=== PATIENT | female | born 1955 | race Caucasian/White ===

== ENCOUNTER 2016-12-19 11:08 | Emergency (ER) | payer OTHER ==
[2016-12-19 11:27] VITALS: BP 146/86; PULSE 87; TEMP 98.5; BMI 43.0
--- NOTE | 2016-12-19 12:32 | PDOC ---
History of Present Illness - General Chief Complaint: Injury Stated Complaint: FALL, PAIN Time Seen by Provider: 12/19/16 11:51 History Source: Patient Exam Limitations: No Limitations - History of Present Illness Initial Comments: 12/19/16 13:39 CHIEF COMPLAINT: Accidental fall on , 12/17/2016 HISTORY OF PRESENT ILLNESS: Patient is a 61-year-old female history of hypertension, high cholesterol, hypothyroid patient reports she fell out of the small bus, transportation that she takes fell onto her right side denies hitting her head , states that she braced herself and only hit right elbow. States that driver's license reviewing officer got out and told her to get up. Has not attempted to take any medication for pain states that she has generalized musculoskeletal pain, pain with range of motion to neck and intermittent headache. 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 No facial edema, no bruising. NO active bleeding. Nares intact. RESPIRATORY: No cough, wheezing, or hemoptysis. CARDIAC: Denies chest pain, no shortness of breathe. MUSCULOSKELETAL: No spinal point tenderness, lower c-spine tenderness, Good ROM to all four extremities. NO CVA tenderness. bilateral lateral neck pain. GI/: Denies abdominal pain, no nausea or vomiting, no bloody stool, no Hematuria. SKIN : No erythema or bruising noted. Healing abrasion to the right elbow. NEUROLOGIC: No loss of consciousness, no numbness or tingling. PHYSICAL EXAM: GENERAL: Awake and alert and oriented x3. EYES: The pupils are equal, round, and reactive to light, with clear, conjunctiva. Good extraocular movement. No nystagmus NOSE: No nasal trauma . Midface stable MOUTH: Teeth intact. EARS: The ear canals and tympanic membranes are normal without trauma. No drainage. NECK: generalized cervical C-spine tenderness, no pain with chin to chest. CHEST: The lungs are clear without crackles, or wheezes. No subcutaneous emphysema. No crepitus. HEART: Heart is regular rhythm, with normal S1 and S2, no murmurs. ABDOMEN: The abdomen is soft and nontender with normal bowel sounds. There is no guarding or rebound. MUSCULOSKELETAL: No spinal point tenderness. No bruising or erythema. Pelvis stable. Pain on palpation to right lateral lower ribs. EXTREMITIES: Extremities are normal. No visible traumatic injury. NEUROLOGICAL:Mental status: The patient is oriented x3. No Generalized headache , Romberg - Cranial nerves: Cranial nerves II through XII are intact Motor: The upper extremities are 5 over 5 in all muscle groups. The lower extremities are 5 over 5 in all muscle groups. Sensation: Sensation is intact to light touch throughout. Cerebellar: Jkqsei-cknetz-jeuv is normal in both upper extremities. Heel-knee- blake is normal in both lower extremities. Reflexes: 2+ and symmetric in the upper and lower extremities. Gait: Normal. Heel and toe walking are normal. Tandem gait is normal. SKIN: Without edema, erythema or bruising. Healing abrasion to the right elbow. 12/19/16 16:44 Past History - Past Medical History Allergies/Adverse Reactions: Allergies Allergy/AdvReac Type Severity Reaction Status Date / Time No Known Allergies Allergy Verified 12/19/16 11:21 Home Medications: Ambulatory Orders Ibuprofen [Motrin -] 600 mg PO QID #28 tablet 12/19/16 Diabetes: Yes HTN: Yes - Psycho/Social/Smoking Cessation Hx Suicidal Ideation: No Smoking History: Never smoked *Physical Exam - Vital Signs Last Vital Signs Temp Pulse Resp BP Pulse Ox 98.5 F 87 18 146/86 94 L 12/19/16 11:21 12/19/16 11:21 12/19/16 11:21 12/19/16 11:21 12/19/16 11:21 Medical Decision Making - Medical Decision Making 12/19/16 13:48 A/P: Patient with generalized musculoskeletal pain status post fall however does have minor spinal point tenderness, low suspicion for bony injury however patient requesting x-rays will perform x-rays of right wrist where it's tender on palpation and C-spine, Toradol 60 mg IM explained to patient that it may be musculoskeletal in nature and will DC on anti-inflammatories of x-rays are negative. 12/19/16 13:49 12/19/16 14:28 X-rays ribs negative for acute fracture, C-spine with degenerative changes straightening otherwise unremarkable if pain persists recommend further follow- up will DC patient home on Motrin as needed, follow-up with orthopedics. I discussed the physical exam findings, ancillary test results and final diagnoses with the patient. I answered all of the patient's questions. The patient was satisfied with the care received and felt comfortable with the discharge plan and treatment plan. The patient will call to arrange follow-up and will return to the Emergency Department with any new, persistent or worsening symptoms. 12/19/16 16:44 *DC/Admit/Observation/Transfer Diagnosis at time of Disposition: Musculoskeletal pain Accidental fall Qualifiers: Encounter type: initial encounter Qualified Code(s): W19.XXXA - Unspecified fall, initial encounter - Discharge Dispostion Disposition: HOME Condition at time of disposition: Stable Admit: No - Prescriptions Prescriptions: Ibuprofen [Motrin -] 600 mg PO QID #28 tablet - Referrals Referrals: David Peguero [Primary Care Provider] - - Patient Instructions Additional Instructions: 1. Please return to the emergency department with any numbness, tingling, weakness, numbness or tingling to groin or legs, or loss of bowel or bladder function. 2. Use pain medication as ordered. 3. Please is to followup in the office orthopedics for evaluation within a week if no improvement. 4. Ice or heat 5. Refrain from lifting anything above 10 pounds, until pain resolved.
[2016-12-19] MEDS ORDERED: KETOROLAC TROMETHAMINE 60 MG/2 ML VIAL IM ONE (13:02)
[2016-12-19] MEDS ORDERED: KETOROLAC TROMETHAMINE 60 MG/2 ML VIAL ONE (13:03)
== END 2016-12-19 14:37 | disposition home or self-care (01) ==
LOC: JERFT 11:08
PROC: 3E0233Z Introduction of Anti-inflammatory into Muscle, Percutaneous Approach (ICD-10-PCS; principal; 2016-12-19)
DX: M79.1 Myalgia (principal); V79.88XA Bus occupant (driver) (passenger) injured in other specified transport accidents, initial encounter; Y93.89 Activity, other specified; Y92.410 Unspecified street and highway as the place of occurrence of the external cause; I10 Essential (primary) hypertension; E11.9 Type 2 diabetes mellitus without complications; E03.9 Hypothyroidism, unspecified
CPT/HCPCS: 71101-TC-RT; 72050-TC; 99281-25

== ENCOUNTER 2017-06-15 04:41 | Day surgery (SDC) | payer OTHER ==
[2017-06-15 05:00] VITALS: BMI 40.2
--- NOTE | 2017-06-15 05:16 | PDOC ---
History of Present Illness - General Chief Complaint: Pain Stated Complaint: ABD PAIN Time Seen by Provider: 06/15/17 05:16 - History of Present Illness Initial Comments: 06/15/17 07:29 Patient is a 61 year old female with a significant past medical history of Diabetes, Depression hypertension, high cholesterol, hypothyroid who presents to the ED with complaints of abdominal pain that began 2 days ago. Patient reports abdominal pain began suddenly while at home. Patient state it was and intermittent cramping pain that was intense enough to wake her from sleep at 3 am prompting her to activate EMS. Denies chest pain, SOB. Denies nausea, vomiting. Denies fever, chills. Denies contact with sick individuals, out of state travel. Denies constipation, diarrhea, dysuria. Denies any other symptoms. Allergies: None Social history: No smoking. No alcohol. No illicit drugs. Surgical history: None PMD: None Past History - Past Medical History Allergies/Adverse Reactions: Allergies Allergy/AdvReac Type Severity Reaction Status Date / Time No Known Allergies Allergy Verified 06/15/17 04:52 Home Medications: Ambulatory Orders Liraglutide [Victoza -] 0.8 mg SQ DAILY@0700 06/15/17 Quetiapine Fumarate [Seroquel -] 200 mg PO HS 06/15/17 Venlafaxine HCl [Effexor -] 75 mg PO DAILY 06/15/17 Diabetes: Yes HTN: Yes - Suicide/Smoking/Psychosocial Hx Smoking History: Never smoked Have you smoked in the past 12 months: No Information on smoking cessation initiated: No Hx Alcohol Use: No Drug/Substance Use Hx: No Review of Systems - Review of Systems Comments:: 06/15/17 07:29 GENERAL/CONSTITUTIONAL: No fever or chills. No weakness. HEAD, EYES, EARS, NOSE AND THROAT: No change in vision. No ear pain or discharge. No sore throat. GASTROINTESTINAL: No nausea, vomiting, diarrhea or constipation. GENITOURINARY: No dysuria, frequency, or change in urination. CARDIOVASCULAR: No chest pain or shortness of breath. RESPIRATORY: No cough, wheezing, or hemoptysis. MUSCULOSKELETAL: +Left lower quadrant pain. No joint or muscle swelling. No neck or back pain. SKIN: No rash NEUROLOGIC: No headache, vertigo, loss of consciousness, or change in strength/ sensation. ENDOCRINE: No increased thirst. No abnormal weight change. HEMATOLOGIC/LYMPHATIC: No anemia, easy bleeding, or history of blood clots. ALLERGIC/IMMUNOLOGIC: No hives or skin allergy. *Physical Exam - Vital Signs Last Vital Signs Temp Pulse Resp BP Pulse Ox 98.1 F 71 14 133/53 97 06/15/17 04:53 06/15/17 04:53 06/15/17 04:53 06/15/17 04:53 06/15/17 04:53 - Physical Exam Comments: 06/15/17 07:30 GENERAL: Awake, alert, and fully oriented, in no acute distress HEAD: No signs of trauma EYES: PERRLA, EOMI, sclera anicteric, conjunctiva clear ENT: Auricles normal inspection, hearing grossly normal, nares patent, oropharynx clear without exudates. Moist mucosa NECK: Normal ROM, supple, no lymphadenopathy, JVD, or masses LUNGS: Breath sounds equal, clear to auscultation bilaterally. No wheezes, and no crackles HEART: Regular rate and rhythm, normal S1 and S2, no murmurs, rubs or gallops ABDOMEN: +Obese. +Left lower quadrant tenderness. Soft, nontender, normoactive bowel sounds. No guarding, no rebound. No masses EXTREMITIES: Normal range of motion, no edema. No clubbing or cyanosis. No cords , erythema, or tenderness NEUROLOGICAL: Normal speech, cranial nerves intact, negative pronator drift, 5/ 5 strength in all 4 extremities, normal sensation to light touch in all 4 extremities, normal cerebellar exam, normal gait, normal reflexes and tone SKIN: Warm, Dry, normal turgor, no rashes or lesions noted. Heart Score/ECG Review #1 06/15/17 07:23 Twelve-lead EKG was performed and reviewed by me. Normal sinus rhythm rate 74. Normal axis and intervals. No ST elevations. T wave inversions in avL, V2 through V4 with T-wave flattening in I, V5 and V6. Unchanged compared to EKG from 05/17/2011. ED Treatment Course - LABORATORY CBC & Chemistry Diagram: 06/15/17 05:20 06/15/17 05:20 Medical Decision Making - Medical Decision Making 06/15/17 07:30 61-year-old female with multiple medical problems presents with left-sided abdominal pain. Vitals unremarkable. Exam with mild left lower quadrant tenderness to palpation area differential includes but not limited to diverticulitis versus colitis versus gastritis. Plan: -pain control -CT -labs -UA -reassess
[2017-06-15] MEDS ORDERED: morphine CARPU-JECT 4 MG/1 ML DISP.SYRIN IVPUSH ONE (05:42)
[2017-06-15 06:02] LABS: BASOPHIL 0.9 % (0-2.0); EOSINOPHIL 2.4 % (0-4.5); MCH 30.4 pg (25.7-33.7); MEAN CELL VOLUME 89.3 fl (80-96); MEAN PLT VOLUME 9.2 fl (7.5-11.1); NEUTROPHILS 49.5 % (42.8-82.8); PLATELET COUNT 227 K/MM3 (134-434); RDW 13.9 % (11.6-15.6)
[2017-06-15] MEDS ORDERED: ONDANSETRON 4 MG/2 ML VIAL IVPUSH ONE (06:10)
[2017-06-15] MEDS ORDERED: morphine SULFATE 4 MG/ML VIAL ONE (06:13)
[2017-06-15] MEDS ORDERED: ONDANSETRON 4 MG/2 ML VIAL ONE (06:13)
[2017-06-15 06:24] LABS: ALBUMIN 3.3 g/dl (3.4-5.0); ANION GAP 12 (8-16); BILIRUBIN,TOTAL 0.4 mg/dL (0.2-1.0); CALCIUM 8.7 mg/dL (8.5-10.1); CO2 28 mmol/L (21-32); CREATININE 0.6 mg/dL (0.55-1.02); GLUCOSE,RANDOM 152 mg/dL (74-106); SGPT/ALT 34 U/L (12-78); TOT PROT 6.5 g/dl (6.4-8.2)
[2017-06-15 06:27] LABS: ALK PHOS 183 U/L (45-117); TROPONIN I < 0.02 ng/ml (0.00-0.05)
[2017-06-15 06:30] LABS: CPK 130 IU/L (26-192); SGOT/AST 31 U/L (15-37)
[2017-06-15 06:41] LABS: URINE APPEARANCE SLCLOUDY; URINE BILIRUBIN NEGATIVE (NEGATIVE); URINE BLOOD 2+ (NEGATIVE); URINE COLOR LTYELLOW; URINE GLUCOSE (UA) NEGATIVE (NEGATIVE); URINE KETONE NEGATIVE (NEGATIVE); URINE NITRITE NEGATIVE (NEGATIVE); URINE PROTEIN NEGATIVE (NEGATIVE); URINE UROBILINOGEN NEGATIVE mg/dL (0.2-1.0)
[2017-06-15] MEDS ORDERED: SODIUM CHLORIDE 0.9% 1000 ML INFUS.BAG IV ONE ×2 (07:33→09:47)
[2017-06-15 08:09] LABS: URINE BACTERIA RARE /hpf (NONE SEEN); URINE MUCUS RARE; URINE RBC 3 /hpf (0-3); URINE WBC 5 /hpf (3-5)
[2017-06-15] MEDS ORDERED: PIPERACILLIN/TAZOB 3.375 GM/50 ML PRE-DOCKED IVPB ONE (09:30)
[2017-06-15] MEDS ORDERED: PIPERACIL/TAZOB 3.375 GM 3.375 GM/50 ML PREMIX IVPB ONE (09:30)
--- NOTE | 2017-06-15 09:45 | PDOC ---
*Physical Exam - Vital Signs Last Vital Signs Temp Pulse Resp BP Pulse Ox 98.1 F 71 14 133/53 97 06/15/17 04:53 06/15/17 04:53 06/15/17 04:53 06/15/17 04:53 06/15/17 04:53 ED Treatment Course - LABORATORY CBC & Chemistry Diagram: 06/15/17 05:20 06/15/17 05:20 - ADDITIONAL ORDERS Additional order review: Laboratory Results 06/15/17 06/15/17 06/15/17 06:30 06:30 05:20 Sodium 141 Potassium 4.3 Chloride 101 Carbon Dioxide 28 Anion Gap 12 BUN 14 Creatinine 0.6 Creat Clearance w eGFR > 60 Random Glucose 152 H Lactic Acid 3.3 H* Calcium 8.7 Total Bilirubin 0.4 AST 31 ALT 34 Alkaline Phosphatase 183 H Creatine Kinase 130 Troponin I < 0.02 Total Protein 6.5 Albumin 3.3 L Lipase 184 Urine Color Ltyellow Urine Appearance Slcloudy Urine pH 6.0 Ur Specific [place] 1.014 Urine Protein Negative Urine Glucose (UA) Negative Urine Ketones Negative Urine Blood 2+ H Urine Nitrite Negative Urine Bilirubin Negative Urine Urobilinogen Negative Urine WBC (Auto) 5 Urine RBC (Auto) 3 Ur Epithelial Cells Few Urine Bacteria Rare Urine Mucus Rare 06/15/17 05:20 RBC 4.20 MCV 89.3 MCHC 34.0 RDW 13.9 MPV 9.2 Neutrophils % 49.5 Lymphocytes % 40.5 H Monocytes % 6.7 Eosinophils % 2.4 Basophils % 0.9 - Medications Given in the ED: ED Medications Discontinued Medications Generic Name Dose Route Start Last Admin Trade Name Cem PRN Reason Stop Dose Admin Morphine Sulfate 4 mg 06/15/17 05:42 06/15/17 06:36 Morphine Injection - IVPUSH 06/15/17 05:43 4 mg ONCE ONE Administration Ondansetron HCl 4 mg 06/15/17 06:10 06/15/17 06:36 Zofran Injection IVPUSH 06/15/17 06:11 4 mg ONCE ONE Administration Sodium Chloride 2,000 ml 06/15/17 07:33 06/15/17 07:38 Normal Saline - IV 06/15/17 07:34 2,000 ml ONCE ONE Administration Medical Decision Making - Medical Decision Making 06/15/17 13:[address] Surgery aware. Given elevated lactate diabetes patient covered with Zosyn. IV fluids ordered. Patient made nothing by mouth. We will admit to surgery for definitive management. *DC/Admit/Observation/Transfer Diagnosis at time of Disposition: Appendicitis Qualifiers: Appendicitis type: acute appendicitis Acute appendicitis type: other Qualified Code(s): K35.89 - Other acute appendicitis - Discharge Dispostion Admit: Yes - Referrals - Patient Instructions - Post Discharge Activity
[2017-06-15] MEDS ORDERED: PIPERACILLIN/TAZOB 3.375 GM 3.375 GM/50 ML BAG IVPB ONE (09:47)
[2017-06-15 10:36] LABS: INR 1.05 (0.82-1.09); PROTHROMBIN TIME (PATIENT) 11.9 SEC (9.98-11.88)
[2017-06-15 10:39] LABS: ACTIVATED PTT 33.3 SECONDS (26.9-34.4)
--- NOTE | 2017-06-15 11:55 | HP ---
Admitting History and Physical - Admission Chief Complaint: LUQ pain History of Present Illness: 61yo morbidly obese F with DM2, HLD, hypothyroidism, depression, no surgical history except upper and lower endoscopies, presented with LLQ pain beginning 2 days ago, associated with anorexia, nausea but no vomiting, no f/c, no d/c, last BM yesterday; the pain has gotten progressively worse, and is now more in the LUQ. Her last po was yesterday afternoon, and she took her home meds with sips of water last night. In the ER, she is afebrile, wbc 9, LFTs normal, and CT showed acute appendicitis, with 8-9mm appendix and periappendiceal inflammatory changes, no abscess or perforation. It also noted a small hiatal hernia, but no obvious left-sided abnormal findings. Contrast reaches the colon. She has no nausea at the time of exam, and indicates the worst pain is LUQ, though she does have some RLQ tenderness. She wants to get her appendix out. History Source: Patient Limitations to Obtaining History: Language Barrier (Pashto, phone paver installer # [id number] and Yoel Pollock, at bedside) - Past Medical History Cardiovascular: Yes: Hyperlipdemia. No: HTN Reproductive: Yes: Postmenopausal ...: No Psych: Yes: Depression Musculoskeletal: Yes: Osteoarthritis Endocrine: Yes: Hypothyroidism - Past Surgical History Past Surgical History: Yes: Colonoscopy, Upper Endoscopy - Smoking History Smoking history: Never smoked Have you smoked in the past 12 months: No - Alcohol/Substance Use Hx Alcohol Use: Yes (rarely) History of Substance Use: reports: None - Social History ADL: Independent Home Medications - Allergies Allergies/Adverse Reactions: Allergies Allergy/AdvReac Type Severity Reaction Status Date / Time No Known Allergies Allergy Verified 06/15/17 04:52 - Home Medications Home Medications: Ambulatory Orders Liraglutide [Victoza -] 0.8 mg SQ DAILY@0700 06/15/17 Quetiapine Fumarate [Seroquel -] 200 mg PO HS 06/15/17 Venlafaxine HCl [Effexor -] 75 mg PO DAILY 06/15/17 Home Medications (free text): synthroid, cholesterol med Family Disease History - Family Disease History Family Disease History: CA: Father (prostate) Review of Systems - Review of Systems Constitutional: reports: Loss of Appetite. denies: Chills, Fever Eyes: reports: Other (uses reading glasses). denies: Recent Change in Vision HENT: denies: Difficult Swallowing, Hearing Loss, Nasal Congestion, Throat Pain Neck: denies: Swollen Glands, Tenderness Cardiovascular: denies: Chest Pain, Palpitations Respiratory: denies: Cough, SOB Gastrointestinal: reports: Abdominal Pain (with hpi), Nausea. denies: Constipation, Diarrhea, Vomiting Genitourinary: reports: Other (vaginal itching 2wks ago, resolved with cream from Dr). denies: Burning, Dysuria Musculoskeletal: reports: Joint Pain (at times). denies: Back Pain Integumentary: denies: Change in Color, Rash Neurological: denies: Dizziness, Headache Psychiatric: reports: Anxiety, Depression Physical Examination Vital Signs: Vital Signs Temperature 98.1 F 06/15/17 04:53 Pulse Rate 71 06/15/17 04:53 Respiratory Rate 14 06/15/17 04:53 Blood Pressure 133/53 06/15/17 04:53 O2 Sat by Pulse Oximetry (%) 97 06/15/17 04:53 Constitutional: Yes: No Distress, Calm, Obese Eyes: Yes: Conjunctiva Clear, EOM Intact HENT: Yes: Atraumatic, Normocephalic Neck: Yes: Supple, Trachea Midline Cardiovascular: Yes: Regular Rate and Rhythm. No: Murmur Respiratory: Yes: Regular, CTA Bilaterally Gastrointestinal: Yes: Soft, Abdomen, Obese, Hyperactive Bowel Sounds, Tenderness (RLQ and LUQ without rebound or guarding) ...Rectal Exam: Yes: Deferred Renal/: No: CVA Tenderness - Left, CVA Tenderness - Right Musculoskeletal: No: Back Pain (no direct tenderness), Joint Swelling Extremities: No: Cool, Cyanosis Edema: Yes Edema: LLE: Trace, RLE: Trace Peripheral Pulses WNL: Yes Integumentary: No: Jaundice, Rash Neurological: Yes: Alert, Oriented. No: Facial Droop Psychiatric: Yes: Alert, Oriented Labs: CBC, BMP 06/15/17 05:20 06/15/17 05:20 CMP Sodium 141 mmol/L (136-145) 06/15/17 05:20 Potassium 4.3 mmol/L (3.5-5.1) 06/15/17 05:20 Chloride 101 mmol/L (98-107) 06/15/17 05:20 Carbon Dioxide 28 mmol/L (21-32) 06/15/17 05:20 Anion Gap 12 (8-16) 06/15/17 05:20 BUN 14 mg/dL (7-18) 06/15/17 05:20 Creatinine 0.6 mg/dL (0.55-1.02) 06/15/17 05:20 Creat Clearance w eGFR > 60 (>60) 06/15/17 05:20 Random Glucose 152 mg/dL (74-106) H 06/15/17 05:20 Lactic Acid 3.3 mmol/L (0.4-2.0) H* 06/15/17 06:30 Calcium 8.7 mg/dL (8.5-10.1) 06/15/17 05:20 Total Bilirubin 0.4 mg/dL (0.2-1.0) 06/15/17 05:20 AST 31 U/L (15-37) 06/15/17 05:20 ALT 34 U/L (12-78) 06/15/17 05:20 Alkaline Phosphatase 183 U/L (45-117) H 06/15/17 05:20 Creatine Kinase 130 IU/L (26-192) 06/15/17 05:20 Troponin I < 0.02 ng/ml (0.00-0.05) 06/15/17 05:20 Total Protein 6.5 g/dl (6.4-8.2) 06/15/17 05:20 Albumin 3.3 g/dl (3.4-5.0) L 06/15/17 05:20 Lipase 184 U/L (73-393) 06/15/17 05:20 Imaging - Results Cat Scan: Report Reviewed (acute appendicitis no abscess or perforation, small hiatal hernia), Image Reviewed EKG: Report Reviewed, Image Reviewed Problem List - Problems (1) Acute appendicitis without mention of peritonitis Assessment/Plan: admit 23H/satellite NPO/IVF antibiotics started in ER DVT prophylaxis pain meds prn continue home meds Discussed with patient risks, benefits and alternatives of laparoscopic possible open appendectomy, including but not limited to bleeding, infection, injury to adjacent structures, intestinal leak or injury, intraabdominal abscess , need for further procedures; alternatives include antibiotics, delayed or no surgery - risks of this include failure of nonoperative therapy, perforation, sepsis, recurrence. Patient desires to proceed with operation - will take to OR for above. Informed consent signed for same. Code(s): K35.80 - UNSPECIFIED ACUTE APPENDICITIS Qualifiers: Acute appendicitis type: other Qualified Code(s): K35.89 - Other acute appendicitis (2) Hypothyroidism Code(s): E03.9 - HYPOTHYROIDISM, UNSPECIFIED Qualifiers: Hypothyroidism type: acquired Qualified Code(s): E03.9 - Hypothyroidism, unspecified (3) Diabetes mellitus type 2 in obese Code(s): E11.69 - TYPE 2 DIABETES MELLITUS WITH OTHER SPECIFIED COMPLICATION; E66.9 - OBESITY, UNSPECIFIED (4) Morbid obesity due to excess calories Code(s): E66.01 - MORBID (SEVERE) OBESITY DUE TO EXCESS CALORIES (5) Depression Code(s): F32.9 - MAJOR DEPRESSIVE DISORDER, SINGLE EPISODE, UNSPECIFIED Qualifiers: Depression Type: major depressive disorder Major depression recurrence: recurrent Active/Remission status: in remission of unspecified degree Qualified Code(s): F33.40 - Major depressive disorder, recurrent, in remission, unspecified (6) Hyperlipidemia Code(s): E78.5 - HYPERLIPIDEMIA, UNSPECIFIED Qualifiers: Hyperlipidemia type: unspecified Qualified Code(s): E78.5 - Hyperlipidemia , unspecified
[2017-06-15 12:44] LABS: URINE LEUK ESTERASE 1+ (NEGATIVE)
[2017-06-15] MEDS ORDERED: morphine SULFATE 4 MG/ML VIAL IVPUSH PRN ×2 (12:49→19:32)
[2017-06-15] MEDS ORDERED: ONDANSETRON 4 MG/2 ML VIAL IVPUSH PRN ×2 (12:52→19:43)
[2017-06-15] MEDS ORDERED: SODIUM CHLORIDE 1,000 ML IV SCH (13:00)
[2017-06-15] MEDS ORDERED: fentaNYL CITRATE 250 MCG/5 ML VIAL ONE (17:11)
[2017-06-15] MEDS ORDERED: PROPOFOL 20 ML ONE ×2 (17:12→19:08)
[2017-06-15] MEDS ORDERED: SUCCINYLCHOLINE CHLORIDE 200 MG/10 ML VIAL ONE (17:12)
[2017-06-15] MEDS ORDERED: ROCURONIUM BROMIDE 50 MG/5 ML VIAL ONE (17:17)
[2017-06-15] MEDS ORDERED: PIPERACILLIN/TAZOB 4.5 GM 4.5 GM in DEXTROSE 5%-WATER - 100 ML IVPB ONE (17:45)
[2017-06-15] MEDS ORDERED: PIPERACILLIN/TAZOB 4.5 GM/100 ML PRE-DOCKED IVPB ONE (18:00)
[2017-06-15] MEDS ORDERED: ePHEDrine SULFATE 50 MG/1 ML AMPULE ONE (18:06)
[2017-06-15] MEDS ORDERED: BUPIVACAINE HCL/PF 0.5% (5MG/ML) 10 ML VIAL ONE (18:09)
[2017-06-15] MEDS ORDERED: DEXAMETHASONE SOD PHOSPHATE 4 MG/1 ML VIAL ONE (18:21)
[2017-06-15] MEDS ORDERED: BUPIVACAINE HCL/PF 0.5% (5MG/ML) 10 ML VIAL IJ ONE ×2 (18:56)
[2017-06-15] MEDS ORDERED: GLYCOPYRROLATE 0.2 MG/1 ML VIAL ONE (19:02)
[2017-06-15] MEDS ORDERED: NEOSTIGMINE METHYLSULFATE 0.5 MG/ML - 10 ML MDV ONE (19:03)
--- NOTE | 2017-06-15 19:25 | OP ---
Operative Note - Note: Operative Date: 06/15/17 Pre-Operative Diagnosis: acute appendicitis Operation: laparoscopic appendectomy Findings: long, inflamed retrocecal appendix with little fluid in R colic gutter Post-Operative Diagnosis: Same as Pre-op Surgeon: Manolo Meza Anesthesiologist/PHYSICIAN ASSISTANT CERTIFIED: Zachery Rivas Anesthesia: General, Local (15ml 0.5% marcaine) Specimens Removed: appendix to pathology Estimated Blood Loss (mls): 5 Drains & Tubes with Location: Sigala removed at end of case Drains, Volume Out (mls): 250 (UOP) Fluid Volume Replaced (mls): 1,000 (crystalloid) Operative Report Dictated: Yes
[2017-06-15] MEDS ORDERED: ACETAMINOPHEN 325 MG TABLET (FP) PO PRN (19:27)
[2017-06-15] MEDS ORDERED: IBUPROFEN 600 MG TABLET (FP) PO PRN (19:27)
[2017-06-15] MEDS ORDERED: oxyCODONE HCL 5 MG TABLET PO PRN (19:27)
[2017-06-15] MEDS ORDERED: ACETAMINOPHEN 1000 MG/100 ML VIAL (NON FORMULARY) IVPB ONE (19:44)
[2017-06-15] MEDS ORDERED: LACTATED RINGERS SOLUTION 1,000 ML IV SCH (19:45)
[2017-06-15] MEDS ORDERED: ENOXAPARIN NA (PORCINE) 40 MG/0.4 ML DISP.SYRIN SQ SCH (22:00)
[2017-06-15] MEDS ORDERED: QUEtiapine FUMARATE 200 MG TABLET PO SCH (22:00)
[2017-06-16] MEDS ORDERED: ACETAMINOPHEN 325 MG TABLET (FP) PO PRN (02:00)
[2017-06-16] MEDS ORDERED: PIPERACILLIN/TAZOB 4.5 GM 4.5 GM/100 ML BAG IVPB ONE (02:00)
[2017-06-16] MEDS ORDERED: PIPERACILLIN/TAZOB 4.5 GM 4.5 GM in DEXTROSE 5%-WATER - 100 ML IVPB ONE (02:00)
[2017-06-16] MEDS: INSULIN SLIDING SCALE (NOVOLOG) 1 VIAL SQ SCH ×2 (02:49→06:49)
[2017-06-16] MEDS ORDERED: LEVOTHYROXINE NA 75 MCG TABLET (FP) PO SCH (07:00)
[2017-06-16] MEDS ORDERED: IBUPROFEN 600 MG TABLET (FP) PO PRN (07:41)
[2017-06-16] MEDS ORDERED: oxyCODONE HCL 5 MG TABLET PO PRN (07:41)
[2017-06-16] MEDS ORDERED: morphine SULFATE 4 MG/ML VIAL IVPUSH PRN (07:41)
[2017-06-16] MEDS ORDERED: SODIUM CHLORIDE 1,000 ML IV SCH (07:41)
--- NOTE | 2017-06-16 07:46 | EKG ---
Test Reason : Blood Pressure : / mmHG Vent. Rate : 074 BPM Atrial Rate : 074 BPM P-R Int : 144 ms QRS Dur : 086 ms QT Int : 416 ms P-R-T Axes : 043 059 068 degrees QTc Int : 461 ms NORMAL SINUS RHYTHM NONSPECIFIC T WAVE ABNORMALITY ABNORMAL ECG WHEN COMPARED WITH ECG OF 08-DEC-2005 20:50, NO SIGNIFICANT CHANGE WAS FOUND Confirmed by Tran Larios ([id number]) on 06/15/2017 2:41:00 PM Also confirmed by MD Ric, Tran ([id number]), editor news TRAN MOBLEY ([id number]) on 06/16/2017 7:45:49 AM Referred By: Confirmed By:Tran Larios MD
[2017-06-16] MEDS ORDERED: ENOXAPARIN NA (PORCINE) 40 MG/0.4 ML DISP.SYRIN SQ SCH (10:00)
[2017-06-16] MEDS ORDERED: VENLAFAXINE HCL 75 MG TABLET PO SCH ×2 (10:00)
--- NOTE | 2017-06-16 10:22 | DS ---
Physical Examination Vital Signs: Vital Signs Temperature 98.5 F 06/16/17 05:59 Pulse Rate 71 06/16/17 05:59 Respiratory Rate 18 06/16/17 05:59 Blood Pressure 123/58 06/16/17 05:59 O2 Sat by Pulse Oximetry (%) 98 06/15/17 20:50 Findings/Remarks: Pt is seen and examined in bed. She feels better, and has a little pain, mostly in her umbilicus. She has tolerated breakfast without nausea, ambulated and urinated. She also had some diarrhea, likely from the oral contrast. Glucose was 167 before breakfast. Per nursing, her O2 sats were a bit low this am, so she has nasal cannula O2. Respiratory is bringing an incentive spirometer. She ambulated from the bed to a chair, and can take good deep breaths. Provided sats are good on room air with good pulmonary toilet, she will go home after lunch. Constitutional: Yes: No Distress, Calm, Obese Eyes: Yes: Conjunctiva Clear, EOM Intact HENT: Yes: Atraumatic, Normocephalic Cardiovascular: Yes: Regular Rate and Rhythm. No: Murmur Respiratory: Yes: Regular, CTA Bilaterally, On Nasal O2. No: Rales, Rhonchi, SOB, Wheezes Gastrointestinal: Yes: Soft, Abdomen, Obese, Hypoactive Bowel Sounds, Tenderness (mild RLQ and LUQ, no R/G - much less than preop, some incisional tenderness, mostly at umbilicus). No: Distention Musculoskeletal: No: Joint Stiffness, Joint Swelling Extremities: No: Cool, Cyanosis Edema: Yes Edema: LLE: Trace, RLE: Trace Integumentary: Yes: Incision (x3 dressed). No: Rash Wound/Incision: Yes: Steri Strips (under dressings), Dressing Dry and Intact (x3 ). No: Dressing Removed Neurological: Yes: Alert, Oriented Psychiatric: Yes: Alert, Oriented Discharge Summary Reason For Visit: ACUTE APPENDICITIS Current Active Problems Acute appendicitis without mention of peritonitis (Acute) Depression (Acute) Diabetes mellitus type 2 in obese (Acute) Hyperlipidemia (Acute) Hypothyroidism (Acute) Morbid obesity due to excess calories (Acute) Procedures: Principal: laparoscopic appendectomy Hospital Course: 61yo morbidly obese F with HLD, DM, hypothyroidism, depression, presented to ER with 2 days of increasing LLQ, then LUQ abdominal pain, associated with anorexia and nausea but no vomiting. On exam she was tender in the RLQ and LUQ. She had a wbc of 9, and a CT showed acute appendicitis. She was taken for uneventful laparoscopic appendectomy and given perioperative Zosyn. Postoperatively, she has done well, tolerated a diabetic diet with glucose in acceptable range, is ambulating and voiding, had loose stools, and is using nonnarcotic oral pain medication for mainly incisional pain. O2 sats are in the 90s on room air, and she is using IS. She is discharged to home to follow up in 2 weeks. Condition: Good - Instructions Diet, Activity, Other Instructions: Postoperative instructions: You had a laparoscopic appendectomy on 06/15/[address] Manolo Meza of [facility]. Activity: Resume your usual activities gradually, but no heavy exertion or lifting more than 10-15 pounds for 1 month. Remove dressings 48 hours after surgery; sticky tapes underneath will fall off by themselves. You may shower daily starting then, just pat the incision areas dry. No bath or swimming until skin incisions are completely healed. Eat lightly at first, but advance to your usual diet as tolerated. Pain: For pain, you may use and alternate Tylenol (acetaminophen) and/or ibuprofen every 6 hours each as needed; this means that you can take one OR the other at 3-hour intervals. If you are prescribed a Tylenol/narcotic combination for severe pain, use it instead of plain Tylenol as needed and switch back when your pain starts decreasing. Do not take more than 4000mg of acetaminophen in a day. Take medications as prescribed or indicated on the labeling. Follow-up: Call Dr. Meza's office at [phone] to make your postop appointment (Wednesday ~2 weeks after surgery). Clinic is held in the [facility] on the first floor of [facility]. Call the office if you have: * increasing pain not responsive to pain medication * fever of 101F or higher * vomiting * unusual or increasing bleeding or drainage from wounds * increasing redness or swelling at wound sites * inability to urinate Also, see your primary medical doctor within 1-2 weeks. Disposition: HOME - Home Medications Comprehensive Discharge Medication List: Ambulatory Orders Levothyroxine [Synthroid -] 150 mcg PO DAILY 06/15/17 Liraglutide [Victoza -] 0.8 mg SQ DAILY@0700 06/15/17 Quetiapine Fumarate [Seroquel -] 200 mg PO HS 06/15/17 Venlafaxine HCl [Effexor -] 75 mg PO DAILY 06/15/17 Acetaminophen [Tylenol .Regular Strength -] 650 mg PO Q6H PRN tablet 06/16/17 Ibuprofen [Motrin -] 600 mg PO Q6H PRN tablet 06/16/17
[2017-06-16 10:47] VITALS: BP 118/61; PULSE 70; TEMP 97.8
[2017-06-16] MEDS ORDERED: INSULIN SLIDING SCALE (NOVOLOG) 1 VIAL SQ SCH (11:00)
--- NOTE | 2017-06-16 14:57 | OP ---
DATE OF OPERATION: 06/15/2017 PREOPERATIVE DIAGNOSIS: Acute appendicitis. POSTOPERATIVE DIAGNOSIS: Acute appendicitis. PROCEDURE: Laparoscopic appendectomy. SURGEON: Manolo Meza MD ANESTHESIA: General endotracheal. ESTIMATED BLOOD LOSS: 5 mL. FLUIDS: 1 L crystalloid. URINE OUTPUT: 250 mL. SPECIMEN: Appendix to pathology. FINDINGS: A long, inflamed retrocecal appendix with very little fluid in the right colic gutter. DISPOSITION: Stable and extubated to PACU. INDICATIONS FOR PROCEDURE: The patient is a 61-year-old morbidly obese female with hyperlipidemia, hypothyroidism, diabetes, depression, and no abdominal surgical history who presented to the emergency room with initially left lower quadrant pain beginning 2 days prior, associated with anorexia and nausea but no vomiting, which has gotten progressively worse, moving in part to the left upper quadrant and, in fact, waking her from sleep early yesterday morning, prompting her visit to the emergency room. In the emergency room, she was afebrile with a white count of [address] scan showing acute appendicitis with no abscess or perforation, with an elongated 8- to 9-mm appendix with periappendiceal inflammatory changes but no obvious findings on the left side. She did have left upper quadrant and right lower quadrant tenderness. Risks, benefits, and alternatives of laparoscopic, possible open, appendectomy were discussed with the patient including, but not limited to, bleeding, infection, injury to adjacent structures, intestinal leak or injury, intra-abdominal abscess, need for further procedures, and alternatives including antibiotics, delayed or no surgery the risks of which include failure of nonoperative therapy, perforation, sepsis, and recurrence. The patient does desire to proceed with appendectomy, and she is brought to the operating room for the same after signing informed consent. Communication and interpretation in Monegasque was facilitated by a telephone tool room lathe operator as well as a nurse at the bedside. OPERATIVE TECHNIQUE: The patient was brought to the operating room and laid supine on the operating table. Sequential compression devices were applied to bilateral lower extremities, and her 2nd dose of Zosyn was given immediately preoperatively in the OR. After induction and intubation by Anesthesia, a Sigala catheter was placed in the patient's bladder, which was removed at the end of the case. The patient's abdomen was prepped and draped in sterile fashion. A small supraumbilical midline incision was made with a scalpel and carried into subcutaneous tissues with electrocautery, until the abdominal wall fascia was identified, scored, and elevated with Vanda clamps. The peritoneum was entered bluntly with the tip of a clamp , and a fingertip inserted to ensure entry into the abdominal cavity and the absence of any underlying adhesions. A stay suture of 0 Vicryl was placed in [id number] fashion in the fascia for later closure, and a Sahara trocar introduced directly into the abdominal cavity and secured in place with the balloon. The abdomen was insufflated with carbon dioxide, and the laparoscope was inserted to inspect the abdominal cavity. The patient was placed in Trendelenburg position with the right side planed upward. The cecum was apparent in the right mid abdomen. Two additional 5-mm ports were placed under direct vision in the left lower quadrant and suprapubic areas , and the camera was switched to the left lower quadrant port. Two graspers were introduced through the other 2 ports and used to gently manipulate the small bowel medially and away from the right lower quadrant revealing the cecum, terminal ileum, and the base of the appendix. The base of the appendix was grasped, elevated, and rolled medially revealing the tip of the appendix running up slightly behind the cecum. The appendix was elongated, somewhat inflamed, and there was a very small amount of fluid visible in the right colic gutter. A Maryland dissector was used to develop a small window at the base of the appendix where it joined the cecum, and a 45 blue load of the Endo ARTHUR stapler was then used to transect the base of the appendix at the cecal junction. The appendix was grasped and elevated, and a 60 white load of the Endo ARTHUR stapler reintroduced and used to transect most of the mesoappendix. An additional 45 white load of the stapler was also used to complete transection of the mesoappendix, and the last small bit of fat was with hot Maryland dissector using the cautery. The initial mesoappendix staple line had some small amounts of oozing. Hemostasis was accomplished, again, with the tip of the hot [place] dissector. The suction upper lining cementer was introduced and used to strictly suction a small amount of fluid and blood from the right lower quadrant, right colic gutter, and around the operative site. There was no active bleeding noted from anything, and no additional fluid identifiable including down into the pelvis. The patient was returned to neutral position. The appendix was then placed in an EndoCatch bag and drawn up into the Sahara trocar site. Once hemostasis had been assured, the suprapubic port was visualized being removed from the abdomen. The Sahara balloon was deflated, and the Sahara and appendix also removed from the abdominal cavity, at which point the camera and left lower quadrant port were also removed, and the abdomen exsufflated of carbon dioxide. The appendix was passed off as specimen for pathology. The 0 Vicryl at the umbilical site was tied to close the fascia there. Hemostasis was achieved in the port sites with electrocautery where necessary. Local anesthetic was infiltrated into all 3 port sites, and 4-0 Vicryl subcuticular sutures were used to close the skin at all 3 port sites, including a running at the umbilical location. Benzoin and Steri-Strips were applied to each incision, which were then covered with gauze and Tegaderm. Counts were correct at the end of the procedure. The Sigala catheter was removed from the patient's bladder. The patient was then awakened and extubated by Anesthesia and was able to assist in moving herself back to a stretcher. She was taken to the recovery room in stable condition having tolerated the procedure well. David [id number] MTDD
[2017-06-16] MEDS ORDERED: QUEtiapine FUMARATE 200 MG TABLET PO SCH (22:00)
[2017-06-17] MEDS ORDERED: LEVOTHYROXINE NA 150 MCG TABLET PO SCH (07:00)
--- NOTE | 2017-06-17 11:40 | EKG ---
Test Reason : Blood Pressure : / mmHG Vent. Rate : 077 BPM Atrial Rate : 077 BPM P-R Int : 144 ms QRS Dur : 082 ms QT Int : 374 ms P-R-T Axes : 032 055 063 degrees QTc Int : 423 ms NORMAL SINUS RHYTHM LOW VOLTAGE QRS NONSPECIFIC T WAVE ABNORMALITY ABNORMAL ECG WHEN COMPARED WITH ECG OF 15-JUN-2017 06:44, NO SIGNIFICANT CHANGE WAS FOUND Confirmed by MACARENA VILLA, KYM ([id number]) on 06/17/2017 11:39:49 AM Referred By: Confirmed By:KYM FIORE MD
--- NOTE | 2017-06-17 14:34 | PATH ---
Surgical Pathology Report Patient Name: SERA MERCADO [facility]. Rec. #: [id number] /Age/Gender: 1955 (Age: 61) / F Account: [id number] Location: AMBULATORY SURG Taken: 06/15/2017 Received: 06/16/2017 Reported: 06/17/2017 Physicians: Manolo Meza M.D. Specimen(s) Received APPENDIX Clinical History Acute Acute appendicitisappendicitis Final Diagnosis APPENDIX, LAPAROSCOPIC APPENDECTOMY: APPENDICITIS AND PERIAPPENDICITIS. Electronically Signed Joanna Serrano M.D. Gross Description Received in formalin, labeled "appendix," is a 6.7 cm. in length vermiform appendix with a stapled margin of resection and moderate attached fat. The serosa is alves-sheridan and smooth. Sectioning reveals a focally dilated, hemorrhagic lumen. The wall of the appendix averages 0.1 cm. in thickness. Payable Representative sections are submitted in one cassette. 06/16/2017 [facility]06/16/2017
== END 2017-06-16 15:57 | disposition home or self-care (01) ==
LOC: JER 04:41 → JASUSAT 09:46 → J4S 23:00 → JASUSAT 06-16 15:57
PROVIDERS: ATTEND Surgery
PROC: 0DTJ4ZZ Resection of Appendix, Percutaneous Endoscopic Approach (ICD-10-PCS; principal; 2017-06-15 13:00)
DX: K35.89 Other acute appendicitis (principal)
CPT/HCPCS: 36415; 74177-TC; 80053; 81003; 81015; 82550; 83605; 83690; 84484; 85025; 85610; 85730; 86850; 86900; 86901; 87086; 88304-TC; 93005; 93010; 94010; 94760; 99285-25; Q9967

== ENCOUNTER 2017-06-20 00:38 | Emergency (ER) | payer OTHER ==
[2017-06-20 00:49] VITALS: BP 95/70; PULSE 84; TEMP 98.9; BMI 36.8
--- NOTE | 2017-06-20 01:04 | PDOC ---
History of Present Illness - General Chief Complaint: Pain, Acute Stated Complaint: VOMITING, ABDOMINAL JOSE ALFREDO Time Seen by Provider: 06/20/17 00:55 - History of Present Illness Initial Comments: 06/20/17 01:04 61 yo F with h/o HTN, NIDDM, HLD, Appednicits, who presents with abdominal pain. 06/20/17 01:18 Dr. Meza performed laprascopic appendectomy (06/15) with no complications. Discahrged from [facility] 06/16. Given perioperative zosyn 3.375 (06/15) Past History - Past Medical History Allergies/Adverse Reactions: Allergies Allergy/AdvReac Type Severity Reaction Status Date / Time No Known Allergies Allergy Verified 06/20/17 00:41 Home Medications: Ambulatory Orders Levothyroxine [Synthroid -] 150 mcg PO DAILY 06/15/17 Liraglutide [Victoza -] 0.8 mg SQ DAILY@0700 06/15/17 Venlafaxine HCl [Effexor -] 75 mg PO DAILY 06/15/17 Acetaminophen [Tylenol .Regular Strength -] 650 mg PO Q6H PRN tablet 06/16/17 Ibuprofen [Motrin -] 600 mg PO Q6H PRN tablet 06/16/17 COPD: No Diabetes: Yes HTN: Yes Psychiatric Problems: Yes (Anxiety) - Suicide/Smoking/Psychosocial Hx Smoking History: Never smoked Have you smoked in the past 12 months: No Information on smoking cessation initiated: No Hx Alcohol Use: No Drug/Substance Use Hx: No Substance Use Type: None Review of Systems - Review of Systems Comments:: 06/20/17 01:04 GENERAL/CONSTITUTIONAL: No fever or chills. No weakness. HEAD, EYES, EARS, NOSE AND THROAT: No change in vision. No ear pain or discharge. No sore throat.- CARDIOVASCULAR: No chest pain or shortness of breath RESPIRATORY: No cough, wheezing, or hemoptysis. GASTROINTESTINAL: No nausea, vomiting, diarrhea or constipation. GENITOURINARY: No dysuria, frequency, or change in urination. MUSCULOSKELETAL: No joint or muscle swelling or pain. No neck or back pain. SKIN: No rash NEUROLOGIC: No headache, vertigo, loss of consciousness, or change in strength/ sensation. ENDOCRINE: No increased thirst. No abnormal weight change HEMATOLOGIC/LYMPHATIC: No anemia, easy bleeding, or history of blood clots. ALLERGIC/IMMUNOLOGIC: No hives or skin allergy. *Physical Exam - Vital Signs Last Vital Signs Temp Pulse Resp BP Pulse Ox 98.9 F 84 20 95/70 93 L 06/20/17 00:41 06/20/17 00:41 06/20/17 00:41 06/20/17 00:41 06/20/17 00:41 - Physical Exam Comments: 06/20/17 01:04 GENERAL: Awake, alert, and fully oriented, in no acute distress HEAD: No signs of trauma, normocephalic, atraumatic EYES: PERRLA, EOMI, sclera anicteric, conjunctiva clear ENT: Auricles normal inspection, hearing grossly normal, nares patent, oropharynx clear without exudates. Moist mucosa NECK: Normal ROM, supple, no lymphadenopathy, JVD, or masses LUNGS: No distress, speaks full sentences, clear to auscultation bilaterally HEART: Regular rate and rhythm, normal S1 and S2, no murmurs, rubs or gallops, peripheral pulses normal and equal bilaterally. ABDOMEN: Soft, nontender, normoactive bowel sounds. No guarding, no rebound. No masses EXTREMITIES : Normal inspection, Normal range of motion, no edema. No clubbing or cyanosis. NEUROLOGICAL: Cranial nerves II through XII grossly intact. Normal speech, normal gait, no focal sensorimotor deficits SKIN: Warm, Dry, normal turgor, no rashes or lesions noted.
[2017-06-20] MEDS ORDERED: DICYCLOMINE HCL 10 MG/5 ML PO ONE (01:34)
[2017-06-20] MEDS ORDERED: MAG HYDROX/AL HYDROX/SIMETH 30 ML UNIT-DOSE CUP PO ONE (01:34)
[2017-06-20] MEDS ORDERED: MAG HYDROX/AL HYDROX/SIMETH 30 ML UNIT-DOSE CUP ONE (01:38)
[2017-06-20] MEDS ORDERED: DICYCLOMINE HCL 10 MG CAPSULE ONE (01:38)
--- NOTE | 2017-06-20 01:39 | PDOC ---
History of Present Illness - General History Source: Patient Exam Limitations: No Limitations - History of Present Illness Initial Comments: 06/20/17 01:40 The patient is a 61 year old female with a significant PMH of diabetes, depression, HTN, hyperlipidemia, and hypothyroidism who presents to the emergency department with dizziness and a burning sensation in her throat beginning earlier today. The patient reports being dizzy and feeling like she has to pass out. She also reports feeling acid in her throat slime seltzer to no relief. She reports coming to the ED on Wednesday for abdominal pain and receiving an appendectomy shortly after. She reports currently being on Omeprazole. The patient denies any personal or family history of heart problems. The patient denies chest pain, shortness of breath, headache. Denies fever, chills, nausea, vomit, diarrhea and constipation. Denies dysuria, frequency, urgency and hematuria. Allergies: NKA Past surgical history: Appendectomy (06/15/17). Social history: No reported cigarette, alcohol,or drug use. PCP: Dr. Bri Castro <Timmy Stratton - Last Filed: 06/20/17 01:42> <Karyn Parada - Last Filed: 06/20/17 19:53> - General Chief Complaint: Pain, Acute Stated Complaint: VOMITING, ABDOMINAL JOSE ALFREDO Time Seen by Provider: 06/20/17 00:55 Past History <Timmy Stratton - Last Filed: 06/20/17 01:42> - Past Medical History COPD: No Diabetes: Yes HTN: Yes Psychiatric Problems: Yes (Anxiety) - Suicide/Smoking/Psychosocial Hx Smoking History: Never smoked Have you smoked in the past 12 months: No Information on smoking cessation initiated: No Hx Alcohol Use: No Drug/Substance Use Hx: No Substance Use Type: None <Karyn Parada - Last Filed: 06/20/17 19:53> - Past Medical History Allergies/Adverse Reactions: Allergies Allergy/AdvReac Type Severity Reaction Status Date / Time No Known Allergies Allergy Verified 06/20/17 00:41 Home Medications: Ambulatory Orders Levothyroxine [Synthroid -] 150 mcg PO DAILY 06/15/17 Liraglutide [Victoza -] 0.8 mg SQ DAILY@0700 06/15/17 Venlafaxine HCl [Effexor -] 75 mg PO DAILY 06/15/17 Acetaminophen [Tylenol .Regular Strength -] 650 mg PO Q6H PRN tablet 06/16/17 Ibuprofen [Motrin -] 600 mg PO Q6H PRN tablet 06/16/17 Review of Systems - Review of Systems Able to Perform ROS?: Yes Comments:: 06/20/17 01:41 GENERAL/CONSTITUTIONAL: No fever or chills. No weakness. HEAD, EYES, EARS, NOSE AND THROAT: No change in vision. No ear pain or discharge. No sore throat. CARDIOVASCULAR: No chest pain or shortness of breath. RESPIRATORY: No cough, wheezing, or hemoptysis. GASTROINTESTINAL: (+) Burning sensation in throat. No nausea, vomiting, diarrhea or constipation. GENITOURINARY: No dysuria, frequency, or change in urination. MUSCULOSKELETAL: No joint or muscle swelling or pain. No neck or back pain. SKIN: No rash NEUROLOGIC: (+) Dizziness. No headache, vertigo, loss of consciousness, or change in strength/sensation. ENDOCRINE: No increased thirst. No abnormal weight change. HEMATOLOGIC/LYMPHATIC: No anemia, easy bleeding, or history of blood clots. ALLERGIC/IMMUNOLOGIC: No hives or skin allergy. <Timmy Stratton - Last Filed: 06/20/17 01:42> *Physical Exam - Vital Signs Last Vital Signs Temp Pulse Resp BP Pulse Ox 98.9 F 84 20 95/70 93 L 06/20/17 00:41 06/20/17 00:41 06/20/17 00:41 06/20/17 00:41 06/20/17 00:41 - Physical Exam Comments: 06/20/17 01:41 GENERAL: Awake, alert, and fully oriented, in no acute distress HEAD: No signs of trauma EYES: PERRLA, EOMI, sclera anicteric, conjunctiva clear ENT: Auricles normal inspection, hearing grossly normal, nares patent, oropharynx clear without exudates. Moist mucosa NECK: Normal ROM, supple, no lymphadenopathy, JVD, or masses LUNGS: Breath sounds equal, clear to auscultation bilaterally. No wheezes, and no crackles HEART: Regular rate and rhythm, normal S1 and S2, no murmurs, rubs or gallops ABDOMEN: (+) Very gassy. Soft, nontender, normoactive bowel sounds. No guarding , no rebound. No masses EXTREMITIES: Normal range of motion, no edema. No clubbing or cyanosis. No cords, erythema, or tenderness NEUROLOGICAL: Cranial nerves II through XII grossly intact. Normal speech. <Timmy Stratton - Last Filed: 06/20/17 01:42> - Vital Signs Last Vital Signs Temp Pulse Resp BP Pulse Ox 98.9 F 84 20 95/70 93 L 06/20/17 00:41 06/20/17 00:41 06/20/17 00:41 06/20/17 00:41 06/20/17 00:41 <Karyn Parada - Last Filed: 06/20/17 19:53> ED Treatment Course - LABORATORY CBC & Chemistry Diagram: 06/20/17 01:53 06/20/17 01:53 - RADIOLOGY Radiology Studies Ordered: Category Date Time Status CHEST PA & LAT [RAD] Stat Radiology 06/20/17 01:35 Ordered <Karyn Parada - Last Filed: 06/20/17 19:53> Medical Decision Making - Medical Decision Making 06/20/17 19:51 Pt with epigastric pain radiating up to her throat. She has elevated alk phos and she is morbidly obese; she has an element of biliary colic and she will be asked to follow with GI. She is afebrile and currently has no abd pain. She feels better with treatment with bentyl and maalox. Cardiac workup is normal. EKG and CXR normal. Pt is stable for discharge. SHe has GERD. <Karyn Parada - Last Filed: 06/20/17 19:53> *DC/Admit/Observation/Transfer - Attestations Scribe Attestion: 06/20/17 01:41 Documentation prepared by Timmy Stratton, acting as medical records manager for Karyn Parada MD. <Timmy Stratton - Last Filed: 06/20/17 01:42> - Discharge Dispostion Admit: No <Karyn Paraad - Last Filed: 06/20/17 19:53> Diagnosis at time of Disposition: Biliary colic - Discharge Dispostion Disposition: HOME Condition at time of disposition: Stable - Referrals Referrals: Pérez Blake MD [Staff Physician] - - Patient Instructions Printed Discharge Instructions: DI for Biliary Colic
[2017-06-20 01:59] LABS: BASOPHIL 1.3 % (0-2.0); EOSINOPHIL 2.6 % (0-4.5); MCH 30.6 pg (25.7-33.7); MEAN PLT VOLUME 8.2 fl (7.5-11.1); NEUTROPHILS 53.7 % (42.8-82.8); PLATELET COUNT 272 K/MM3 (134-434); RDW 14.3 % (11.6-15.6); WHITE BLOOD COUNT 10.5 K/mm3 (4.0-10.0)
[2017-06-20 02:37] LABS: ALBUMIN 3.6 g/dl (3.4-5.0); ALK PHOS 263 U/L (45-117); ANION GAP 9 (8-16); BILIRUBIN,TOTAL 0.4 mg/dL (0.2-1.0); CALCIUM 9.7 mg/dL (8.5-10.1); CO2 30 mmol/L (21-32); CREATININE 0.7 mg/dL (0.55-1.02); GLUCOSE,RANDOM 138 mg/dL (74-106); SGOT/AST 32 U/L (15-37); SGPT/ALT 70 U/L (12-78); TOT PROT 7.1 g/dl (6.4-8.2)
[2017-06-20 02:39] LABS: CPK 133 IU/L (26-192); TROPONIN I < 0.02 ng/ml (0.00-0.05)
--- NOTE | 2017-06-21 15:09 | EKG ---
Test Reason : Blood Pressure : / mmHG Vent. Rate : 084 BPM Atrial Rate : 084 BPM P-R Int : 148 ms QRS Dur : 080 ms QT Int : 384 ms P-R-T Axes : 029 062 068 degrees QTc Int : 453 ms NORMAL SINUS RHYTHM T WAVE ABNORMALITY, CONSIDER ANTERIOR ISCHEMIA ABNORMAL ECG WHEN COMPARED WITH ECG OF 15-JUN-2017 09:55, NO SIGNIFICANT CHANGE WAS FOUND Confirmed by CLARICE BRAN MD ([id number]) on 06/21/2017 3:08:52 PM Referred By: Confirmed By:CLARICE BRAN MD
== END 2017-06-20 04:50 | disposition home or self-care (01) ==
LOC: JER 00:38
DX: K80.50 Calculus of bile duct without cholangitis or cholecystitis without obstruction (principal); E11.9 Type 2 diabetes mellitus without complications; I10 Essential (primary) hypertension; E78.5 Hyperlipidemia, unspecified; E03.9 Hypothyroidism, unspecified; F32.9 Major depressive disorder, single episode, unspecified
CPT/HCPCS: 36415; 71020-TC; 80053; 82550; 84484; 85025; 93005; 93010; 99281-25

== ENCOUNTER 2017-08-11 13:07 | Day surgery (SDC) | payer OTHER ==
[2017-08-10 14:17] VITALS: BMI 37.8
--- NOTE | 2017-08-11 12:51 | PROC ---
Endoscopy Procedure Endoscopy procedure completed. Please see scanned procedure report.
[2017-08-11 13:37] VITALS: TEMP 98.2
[2017-08-11 14:29] VITALS: BP 122/72; PULSE 64
== END 2017-08-11 14:30 | disposition home or self-care (01) ==
LOC: JASU-ENDO 13:07
PROVIDERS: ATTEND Internal Medicine Gastroenterology
PROC: 0DB68ZX Excision of Stomach, Via Natural or Artificial Opening Endoscopic, Diagnostic (ICD-10-PCS; 2017-08-11)
PROC: 0DB38ZX Excision of Lower Esophagus, Via Natural or Artificial Opening Endoscopic, Diagnostic (ICD-10-PCS; 2017-08-11)
PROC: 0DB98ZX Excision of Duodenum, Via Natural or Artificial Opening Endoscopic, Diagnostic (ICD-10-PCS; principal; 2017-08-11 13:00)
DX: K22.70 Barrett's esophagus without dysplasia (principal); K44.9 Diaphragmatic hernia without obstruction or gangrene

== ENCOUNTER 2019-04-09 09:24 | Emergency (ER) | payer OTHER ==
[2019-04-09 09:31] VITALS: BP 123/90; PULSE 77; TEMP 97; BMI 34.3
--- NOTE | 2019-04-09 11:06 | PDOC ---
History of Present Illness - General Chief Complaint: Depression Stated Complaint: DEPRESSION Time Seen by Provider: 04/09/19 10:50 History Source: Patient Exam Limitations: No Limitations - History of Present Illness Initial Comments: 04/09/19 10:52 [id number] with h/o depression, suicidal ideation without attempt, diabetes, HTN, hyperlipidemia, and hypothyroidism who p/w 5 days of worsened depression. She notes taking her normal antidepressants, quetiapine to sleep, and all other medications exactly as she is supposed to. However, over the past 5 days she has had worsened difficulty sleeping at night and also has been nauseated with a couple of episodes of vomiting her medication. She denies any current suicidal ideation, homicidal ideation, hallucinations, or delusions. Her daughter brought her in today and states she lives in town and is available to support her mother. They deny any weapons in the home. Past History - Past Medical History Allergies/Adverse Reactions: Allergies Allergy/AdvReac Type Severity Reaction Status Date / Time No Known Allergies Allergy Verified 04/09/19 09:30 Home Medications: Ambulatory Orders Levothyroxine [Synthroid -] 150 mcg PO DAILY 06/15/17 Liraglutide [Victoza -] 0.8 mg SQ DAILY@0700 06/15/17 Venlafaxine HCl [Effexor -] 75 mg PO DAILY 06/15/17 Quetiapine Fumarate [Seroquel -] 200 mg PO HS 08/10/17 Diazepam [Valium] 0.5 mg PO DAILY #1 tablet MDD 1 04/09/19 Diazepam [Valium] 1 mg PO DAILY #2 tablet MDD 1 04/09/19 Anemia: No Asthma: No Cancer: No Cardiac Disorders: No CVA: No COPD: No CHF: No Dementia: No Diabetes: Yes GI Disorders: Yes (DYSPEPSIIA) Disorders: No HTN: Yes Hypercholesterolemia: No Liver Disease: No Psychiatric Problems: Yes (depression on medication) Seizures: No Thyroid Disease: Yes (HYPOTHYROIDISM) - Surgical History Abdominal Surgery: No Appendectomy: Yes Cardiac Surgery: No Cholecystectomy: No Lung Surgery: No Neurologic Surgery: No Orthopedic Surgery: No - Psycho Social/Smoking Cessation Hx Smoking History: Never smoked Have you smoked in the past 12 months: No Hx Alcohol Use: Yes (SOCIALLY) Drug/Substance Use Hx: No Substance Use Type: None Hx Substance Use Treatment: No Review of Systems - Review of Systems Able to Perform ROS?: Yes *Physical Exam - Vital Signs Last Vital Signs Temp Pulse Resp BP Pulse Ox 97 F L 77 18 123/90 99 04/09/19 09:28 04/09/19 09:28 04/09/19 09:28 04/09/19 09:04/09/19 09:28 ED Treatment Course - LABORATORY CBC & Chemistry Diagram: 04/09/19 11:11 04/09/19 11:11 Medical Decision Making - Medical Decision Making [id number] presents with acute on chronic depression without SI/HI or hallucinations. Initial Vital Signs Temp Pulse Resp BP Pulse Ox 97 F L 77 18 123/90 99 04/09/19 09:28 04/09/19 09:28 04/09/19 09:28 04/09/19 09:28 04/09/19 09:28 04/09/19 11:55 The patient is very depressed but not suicidal, homicidal, or experiencing hallucinations/delusions. She is given small dose of valium here, and Rx sent to her pharmacy for one additional pill. She is given resources for outpatient psychiatric tx by case management. She is appropriate for discharge home with close outpatient followup. Specific return precautions are discussed and she leaves with her daughter. Discharge - Discharge Information Problems reviewed: Yes Clinical Impression/Diagnosis: Depression Qualifiers: Depression Type: major depressive disorder Major depression recurrence: unspecified whether recurrent Active/Remission status: currently active Major depression episode severity: unspecified Qualified Code(s): F32.9 - Major depressive disorder, single episode, unspecified Condition: Stable Disposition: HOME - Admission No - Additional Discharge Information Prescriptions: Diazepam [Valium] 0.5 mg PO DAILY #1 tablet MDD 1 Diazepam [Valium] 1 mg PO DAILY #2 tablet MDD 1 - Follow up/Referral Referrals: Doc Eldridge MD [Staff Physician] - - Patient Discharge Instructions Patient Printed Discharge Instructions: DI for Depression -- Adult Additional Instructions: You were seen in the ER for depression. Please take the valium pill tomorrow because we do believe this will help you until you can see your psychiatrist. Please follow up with your psychiatrist or with the new outpatient psychiatrist offices. We gave you resources, so please call their office tomorrow early in the morning and tell them you were seen in the ER and need an emergency appointment. Please return to the ER for any new or worsening symptoms like suicidal or homicidal thoughts, hallucinations, or other concerns. - Post Discharge Activity Work/Back to School Note: My Personal Safety Plan
--- NOTE | 2019-04-09 11:21 | PDOC ---
Attending Attestation - Resident Resident Name: Grazyna Hooper - HPI HPI: 04/09/19 11:44 Pt presents to the ED complaining of worsening of her chronic depression. States that her medications were recently changed by her psychiatrist, and that her current medications are not working. Denies fever, nausea or vomiting or pain. Denies SI, HI or hallucinations. Tearful in the ED. - Physicial Exam PE: 04/09/19 11:50 Agree with resident exam. Patient is alert and oriented x 3 and in no acute distress. Tearful, but denies SI or HI. - Medical Decision Making 04/09/19 11:51 Pt presents to the ED complaining of depression without SI or HI. History of chronic depression, has follow up with her psychiatrist on Wednesday. Will check labs and treat with single dose valium in the ED. Patient will be given outpatient psychiatry referral.
[2019-04-09 11:26] LABS: BASO % 1.6 % (0-2.0); EOS % 1.7 % (0-4.5); HEMOGLOBIN 13.9 GM/dL (10.7-15.3); LYMPH % 39.4 % (8-40); MCH 29.4 pg (25.7-33.7); MCHC 33.2 g/dl (32.0-36.0); MEAN CELL VOLUME 88.7 fl (80-96); MEAN PLT VOLUME 8.5 fl (7.5-11.1); MONO % 6.4 % (3.8-10.2); NEUT % 50.9 % (42.8-82.8); PLATELET COUNT 244 K/MM3 (134-434); RBC 4.73 M/mm3 (3.60-5.2); RDW 14.4 % (11.6-15.6); WHITE BLOOD COUNT 7.7 K/mm3 (4.0-10.0)
[2019-04-09] MEDS ORDERED: diazePAM 5 MG TABLET PO ONE (11:33)
[2019-04-09] MEDS ORDERED: diazePAM 2 MG TABLET ONE (11:48)
[2019-04-09] MEDS ORDERED: diazePAM 2 MG TABLET PO ONE (11:58)
[2019-04-09 12:04] LABS: ALBUMIN 3.6 g/dl (3.4-5.0); BILIRUBIN,TOTAL 0.4 mg/dL (0.2-1); BLOOD UREA NITROGEN 13.3 mg/dL (7-18); CALCIUM 8.9 mg/dL (8.5-10.1); CREATININE 0.6 mg/dL (0.55-1.3); TOT PROT 7.2 g/dl (6.4-8.2)
== END 2019-04-09 13:02 | disposition home or self-care (01) ==
LOC: JER 09:24
DX: F32.9 Major depressive disorder, single episode, unspecified (principal); I10 Essential (primary) hypertension; E11.9 Type 2 diabetes mellitus without complications; Z79.4 Long term (current) use of insulin; E78.00 Pure hypercholesterolemia, unspecified; E03.9 Hypothyroidism, unspecified; Z91.5 Personal history of self-harm
CPT/HCPCS: 36415; 80053; 84443; 85025; 99282-25

== ENCOUNTER 2020-11-21 22:39 | Inpatient (IN) | payer OTHER ==
[2020-11-21 22:48] VITALS: BMI 33.9
[2020-11-22 04:44] LABS: BASO % 1.1 % (0-2.0); EOS % 2.4 % (0-4.5); HEMATOCRIT 32.3 % (32.4-45.2); HEMOGLOBIN 10.8 GM/dL (10.7-15.3); LYMPH % 32.9 % (8-40); MCH 30.6 pg (25.7-33.7); MCHC 33.6 g/dl (32.0-36.0); MEAN CELL VOLUME 90.9 fl (80-96); MEAN PLT VOLUME 8.6 fl (7.5-11.1); MONO % 7.6 % (3.8-10.2); PLATELET COUNT 236 K/MM3 (134-434); RBC 3.55 M/mm3 (3.60-5.2); WHITE BLOOD COUNT 8.3 K/mm3 (4.0-10.0)
[2020-11-22 05:02] LABS: CHLORIDE 102 mmol/L (98-107); SODIUM 141 mmol/L (136-145)
[2020-11-22 05:04] LABS: BLOOD UREA NITROGEN 21.2 mg/dL (7-18); CALCIUM 8.5 mg/dL (8.5-10.1)
[2020-11-22 05:05] LABS: ALBUMIN 3.5 g/dl (3.4-5.0); ANION GAP 4 MMOL/L (8-16); CO2 35 mmol/L (21-32); GLUCOSE,RANDOM 113 mg/dL (74-106)
[2020-11-22 05:08] LABS: CREATININE 0.5 mg/dL (0.55-1.3); SGOT/AST 15 U/L (15-37); SGPT/ALT 15 U/L (13-61)
[2020-11-22 05:09] LABS: BILIRUBIN,TOTAL 0.3 mg/dL (0.2-1); TOT PROT 6.8 g/dl (6.4-8.2)
[2020-11-22 05:10] LABS: ALK PHOS 144 U/L (45-117)
[2020-11-22] MEDS: ALBUTEROL SO4 2.5/IPRATROPIUM 0.5 INH SOL 3 ML VIAL.NEB. NEB SCH ×4 (06:20→07:46)
[2020-11-22] MEDS ORDERED: ALBUTEROL SO4 2.5/IPRATROPIUM 0.5 INH SOL 3 ML VIAL.NEB. NEB ONE ×2 (07:18→17:28)
[2020-11-22] MEDS ORDERED: ACETAMINOPHEN 325 MG TABLET (FP) PO PRN (09:04)
[2020-11-22] MEDS ORDERED: ENOXAPARIN NA (PORCINE) 40 MG/0.4 ML DISP.SYRIN SQ SCH (10:00)
[2020-11-22] MEDS ORDERED: PT OWN MED DRAWER 7, Y5N ONE (10:27)
[2020-11-22] MEDS ORDERED: ENOXAPARIN NA (PORCINE) 40 MG/0.4 ML DISP.SYRIN SQ ONE (10:28)
[2020-11-22] MEDS: BUDESONIDE/FORMETEROL FUMARATE 160/4.5 mcg INHALER IH SCH ×2 (10:50→22:25)
[2020-11-22] MEDS: INSULIN SLIDING SCALE (NOVOLOG) 1 VIAL SQ SCH ×3 (11:11→22:25)
[2020-11-22] MEDS ORDERED: ALBUTEROL SO4 0.083% IH SOL 2.5 MG/3 ML VIAL.NEB. NEB ONE ×2 (12:23→17:28)
[2020-11-22] MEDS: ALBUTEROL SO4 0.083% IH SOL 2.5 MG/3 ML VIAL.NEB. NEB SCH ×3 (12:52→20:24)
[2020-11-22] MEDS ORDERED: PANTOPRAZOLE 40 MG TABLET PO SCH (14:15)
[2020-11-22] MEDS ORDERED: VENLAFAXINE HCL PO SCH ×2 (14:15→15:00)
[2020-11-22] MEDS ORDERED: PANTOPRAZOLE 40 MG TABLET ONE (14:56)
[2020-11-22] MEDS ORDERED: LACTOBACILLUS ACIDOPHILUS 1 TABLET PO SCH (15:00)
[2020-11-22] MEDS ORDERED: LEVOTHYROXINE NA 88 MCG TABLET (FP) PO SCH (15:00)
[2020-11-22] MEDS ORDERED: MIDODRINE HCL 5 MG TABLET PO SCH (18:00)
[2020-11-22 20:23] VITALS: BP 144/58; PULSE 80; TEMP 98.1
[2020-11-22] MEDS ORDERED: QUEtiapine FUMARATE 100 MG TABLET (FP) PO SCH (22:00)
[2020-11-22] MEDS ORDERED: ATORVASTATIN CA 20 MG TABLET (FP) PO SCH (22:00)
[2020-11-22] MEDS ORDERED: busPIRone HCL 10 MG TABLET (FP) PO SCH (22:00)
[2020-11-22] MEDS ORDERED: INSULIN (LEVEMIR) 100 UNITS/ML UNITS SQ SCH (22:00)
[2020-11-22] MEDS ORDERED: QUETIAPINE FUMARATE 100 MG, QUETIAPINE FUMARATE 50 MG PO SCH (22:00)
[2020-11-23] MEDS ORDERED: VENLAFAXINE HCL ER 150 MG, VENLAFAXINE HCL ER 37.5 MG PO SCH (15:00)
== END 2020-11-23 02:08 | disposition home or self-care (01) | DRG 133 ==
LOC: JER 22:39 → JERBED 11-22 06:45
PROVIDERS: ADMIT Internal Medicine; ATTEND Internal Medicine
DX: J96.01 Acute respiratory failure with hypoxia (principal); E78.5 Hyperlipidemia, unspecified; E03.9 Hypothyroidism, unspecified; I95.1 Orthostatic hypotension; E11.9 Type 2 diabetes mellitus without complications; I10 Essential (primary) hypertension; B94.8 Sequelae of other specified infectious and parasitic diseases; F41.8 Other specified anxiety disorders; R10.13 Epigastric pain; K21.9 Gastro-esophageal reflux disease without esophagitis
CPT/HCPCS: 36415; 71045-TC-FY; 80053; 82550; 82962; 84484; 85025; 93005; 93010; 99285-25; C9803; U0003; U0005

== ENCOUNTER 2021-05-19 10:02 | Emergency (ER) | payer OTHER ==
[2021-05-19 10:16] VITALS: BMI 37.2
[2021-05-19 11:45] LABS: EOS % 1.9 % (0-4.5); HEMATOCRIT 33.5 % (32.4-45.2); HEMOGLOBIN 11.9 GM/dL (10.7-15.3); LYMPH % 27.5 % (8-40); MCH 31.1 pg (25.7-33.7); MCHC 35.5 g/dl (32.0-36.0); MEAN CELL VOLUME 87.7 fl (80-96); MONO % 7.4 % (3.8-10.2); NEUT % 62.2 % (42.8-82.8); PLATELET COUNT 232 10^3/uL (134-434); RBC 3.82 M/mm3 (3.60-5.2); RDW 13.9 % (11.6-15.6); WHITE BLOOD COUNT 7.2 K/mm3 (4.0-10.0)
[2021-05-19 11:55] LABS: INR 0.99 (0.83-1.09); PROTHROMBIN TIME (PATIENT) 11.1 SEC (9.7-13.0)
[2021-05-19 12:00] LABS: CALCIUM 8.8 mg/dL (8.5-10.1)
[2021-05-19 12:01] LABS: ALBUMIN 3.4 g/dl (3.4-5.0); BLOOD UREA NITROGEN 19.2 mg/dL (7-18)
[2021-05-19 12:04] LABS: CREATININE 0.6 mg/dL (0.55-1.3)
[2021-05-19 12:06] LABS: BILIRUBIN,TOTAL 0.3 mg/dL (0.2-1); TOT PROT 7.3 g/dl (6.4-8.2)
[2021-05-19] MEDS ORDERED: SODIUM CHLORIDE 1,000 ML IV STA (12:25)
[2021-05-19 13:44] VITALS: BP 133/72; PULSE 90; TEMP 98
== END 2021-05-19 20:28 | disposition home or self-care (01) ==
LOC: JER 10:02
DX: D25.9 Leiomyoma of uterus, unspecified (principal); N93.9 Abnormal uterine and vaginal bleeding, unspecified
CPT/HCPCS: 36415; 76830-TC; 80053; 85025; 85610; 85730; 86850; 86900; 86901; 99284-25

== ENCOUNTER 2021-05-21 14:16 | Emergency (ER) | payer OTHER ==
[2021-05-21 14:38] VITALS: BMI 43.0
[2021-05-21] MEDS ORDERED: ONDANSETRON 4 MG/2 ML VIAL IVPUSH ONE (15:15)
[2021-05-21] MEDS ORDERED: FAMOTIDINE 20 MG/50 ML IVPB 20 MG/50 ML MG IVPB ONE ×2 (15:15→15:45)
[2021-05-21] MEDS ORDERED: ACETAMINOPHEN 1000 MG/100 ML VIAL IVPB ONE (15:15)
[2021-05-21] MEDS ORDERED: LACTATED RINGERS SOLUTION 1000 ML INFUS.BAG IV ONE (15:15)
[2021-05-21 15:45] LABS: BASO % 0.4 % (0-2.0); EOS % 2.2 % (0-4.5); HEMATOCRIT 36.6 % (32.4-45.2); HEMOGLOBIN 12.3 GM/dL (10.7-15.3); LYMPH % 26.1 % (8-40); MCH 30.1 pg (25.7-33.7); MCHC 33.6 g/dl (32.0-36.0); MEAN CELL VOLUME 89.7 fl (80-96); MEAN PLT VOLUME 8.3 fl (7.5-11.1); MONO % 8.6 % (3.8-10.2); NEUT % 62.7 % (42.8-82.8); PLATELET COUNT 257 10^3/uL (134-434); RBC 4.08 M/mm3 (3.60-5.2); WHITE BLOOD COUNT 6.3 K/mm3 (4.0-10.0)
[2021-05-21] MEDS ORDERED: ONDANSETRON 4 MG/2 ML VIAL ONE (15:45)
[2021-05-21] MEDS ORDERED: ACETAMINOPHEN INJECTION 100 ML IVPB ONE (15:45)
[2021-05-21 15:48] LABS: INR 1.04 (0.83-1.09); PROTHROMBIN TIME (PATIENT) 11.6 SEC (9.7-13.0)
[2021-05-21 16:13] LABS: ALBUMIN 3.5 g/dl (3.4-5.0); BLOOD UREA NITROGEN 16.4 mg/dL (7-18)
[2021-05-21 16:16] LABS: CREATININE 0.6 mg/dL (0.55-1.3)
[2021-05-21 16:18] LABS: BILIRUBIN,TOTAL 0.2 mg/dL (0.2-1); TOT PROT 7.4 g/dl (6.4-8.2)
[2021-05-21 20:59] LABS: PH,URINE 5.5 (5.0-8.0); URINE APPEARANCE CLEAR; URINE BILIRUBIN NEGATIVE (NEGATIVE); URINE COLOR ORANGE; URINE GLUCOSE (UA) NEGATIVE (NEGATIVE); URINE KETONE NEGATIVE (NEGATIVE); URINE PROTEIN NEGATIVE (NEGATIVE); URINE UROBILINOGEN 0.2 mg/dL (0.2-1.0)
[2021-05-21 21:00] LABS: EPI CELLS 3.8 /uL (0-25.1); HYALINE CASTS 1.14 /uL (0-3.1); URINE BACTERIA 63.6 /uL (0-1359); URINE LEUK ESTERASE NEGATIVE (NEGATIVE); URINE NITRITE NEGATIVE (NEGATIVE); URINE RBC 73.8 /uL (0-23.9); URINE WBC 7.8 /uL (0-25.8)
[2021-05-22] MEDS ORDERED: BUDESONIDE/FORMETEROL FUMARATE 160/4.5 mcg INHALER IH ONE (09:40)
[2021-05-22 15:48] VITALS: BP 175/72; PULSE 97; TEMP 98
== END 2021-05-22 15:50 | disposition home or self-care (01) ==
LOC: JER 14:16
PROC: 3E033GC Introduction of Other Therapeutic Substance into Peripheral Vein, Percutaneous Approach (ICD-10-PCS; principal; 2021-05-21)
PROC: 3E0F7GC Introduction of Other Therapeutic Substance into Respiratory Tract, Via Natural or Artificial Opening (ICD-10-PCS; 2021-05-21)
DX: K62.5 Hemorrhage of anus and rectum (principal); R10.84 Generalized abdominal pain; R19.7 Diarrhea, unspecified
CPT/HCPCS: 36415; 74177-TC; 80053; 81003; 82272; 83605; 85025; 85610; 85730; 87086; 87186; 99285-25; J0131; Q9967

== ENCOUNTER 2021-09-01 03:20 | Observation (INO) | payer OTHER ==
[2021-09-01 03:46] VITALS: BMI 43.0
[2021-09-01] MEDS ORDERED: ACETAMINOPHEN 1000 MG/100 ML BAG IVPB ONE ×2 (04:11→12:41)
[2021-09-01 04:29] LABS: BASO % 0.6 % (0-2.0); EOS % 2.7 % (0-4.5); HEMATOCRIT 31.7 % (32.4-45.2); HEMOGLOBIN 10.5 GM/dL (10.7-15.3); MCH 28.6 pg (25.7-33.7); MCHC 33.3 g/dl (32.0-36.0); MEAN PLT VOLUME 7.6 fl (7.5-11.1); MONO % 6.7 % (3.8-10.2); PLATELET COUNT 338 10^3/uL (134-434); RBC 3.68 M/mm3 (3.60-5.2); RDW 15.2 % (11.6-15.6)
[2021-09-01] MEDS ORDERED: CEFTRIAXONE 1 GM in DEXTROSE 5%-WATER - 50 ML IVPB ONE (04:44)
[2021-09-01] MEDS ORDERED: DOXYCYCLINE HYCLATE 100 MG CAPSULE PO ONE (04:47)
[2021-09-01 04:51] LABS: INR 1.03 (0.83-1.09); PROTHROMBIN TIME (PATIENT) 11.8 SEC (9.7-13.0)
[2021-09-01] MEDS ORDERED: PIPERACILLIN/TAZOB 3.375 GM 3.375 GM in DEXTROSE 5%-WATER - 50 ML IVPB ONE (04:55)
[2021-09-01 04:59] LABS: CALCIUM 9.1 mg/dL (8.5-10.1)
[2021-09-01 05:00] LABS: ALBUMIN 3.2 g/dl (3.4-5.0); BLOOD UREA NITROGEN 12.2 mg/dL (7-18)
[2021-09-01] MEDS ORDERED: ACETAMINOPHEN INJECTION 100 ML IVPB ONE ×2 (05:02→12:44)
[2021-09-01 05:03] LABS: CREATININE 0.8 mg/dL (0.55-1.3)
[2021-09-01] MEDS ORDERED: PIPERACILLIN/TAZOB 3.375 GM 3.375 GM/50 ML BAG IVPB ONE (05:03)
[2021-09-01 05:04] LABS: BILIRUBIN,TOTAL 0.3 mg/dL (0.2-1)
[2021-09-01 05:49] LABS: VENOUS BASE EXCESS 1.5 mmol/L (-2-2); VENOUS PCO2 57.8 mmHg (38-52); VENOUS PH 7.313 (7.310-7.410)
[2021-09-01 06:50] LABS: N-TERMINAL BNP 137.4 pg/ml (5-125)
[2021-09-01] MEDS ORDERED: ALBUTEROL SO4 HFA INHALER IH PRN (13:20)
[2021-09-01] MEDS ORDERED: INSULIN SLIDING SCALE (NOVOLOG) 1 VIAL SQ SCH (16:30)
[2021-09-01 17:35] VITALS: BP 134/74; PULSE 85; TEMP 99.1
[2021-09-01] MEDS ORDERED: QUEtiapine FUMARATE 100 MG TABLET (FP) GT SCH (22:00)
[2021-09-01] MEDS ORDERED: ATORVASTATIN CA 20 MG TABLET (FP) GT SCH (22:00)
[2021-09-01] MEDS ORDERED: VENLAFAXINE HCL 75 MG TABLET PEG SCH (22:00)
[2021-09-01] MEDS ORDERED: BUDESONIDE/FORMETEROL FUMARATE 160/4.5 mcg INHALER IH SCH (22:00)
[2021-09-02] MEDS ORDERED: PANTOPRAZOLE SOD 40 MG SUSPENSION PACKET PO SCH (10:00)
[2021-09-02] MEDS ORDERED: LISINOPRIL 10 MG TABLET GT SCH (10:00)
[2021-09-02] MEDS ORDERED: FAMOTIDINE 40 MG/5 ML ORAL SUSPENSION NGT SCH (10:00)
== END 2021-09-01 17:50 | disposition home or self-care (01) ==
LOC: JER 03:20 → JERBED 07:10 → INTOOBSV 07:10 → UNDOADMOB 07:10 → JERBED 13:20
PROVIDERS: ADMIT Internal Medicine; ATTEND Internal Medicine
PROC: 3E033NZ Introduction of Analgesics, Hypnotics, Sedatives into Peripheral Vein, Percutaneous Approach (ICD-10-PCS; principal; 2021-09-01)
PROC: 3E03329 Introduction of Other Anti-infective into Peripheral Vein, Percutaneous Approach (ICD-10-PCS; 2021-09-01)
DX: J12.82 Pneumonia due to coronavirus disease 2019 (principal); E03.9 Hypothyroidism, unspecified; E11.9 Type 2 diabetes mellitus without complications; Z93.0 Tracheostomy status; J98.11 Atelectasis; R10.13 Epigastric pain; Z99.81 Dependence on supplemental oxygen; K21.9 Gastro-esophageal reflux disease without esophagitis
CPT/HCPCS: 36415; 70450-TC; 71045-TC-FY; 71275-TC; 80053; 82803; 83880; 84484; 85025; 85610; 87070; 87186; 87205; 87804; 93005; 93010; 96365; 96375; 96376; 99285-25; C9803; G0378; Q9967; U0003; U0005

== ENCOUNTER 2022-08-29 03:06 | Inpatient (IN) | payer OTHER ==
[2022-08-29] MEDS ORDERED: FAMOTIDINE 20 MG/50 ML IVPB 20 MG/50 ML MG IVPB ONE ×2 (04:13→04:21)
[2022-08-29] MEDS ORDERED: ACETAMINOPHEN 1000 MG/100 ML BAG IVPB ONE (04:13)
[2022-08-29] MEDS ORDERED: ONDANSETRON 4 MG/2 ML VIAL IVPUSH ONE (04:13)
[2022-08-29] MEDS ORDERED: ONDANSETRON 4 MG/2 ML VIAL ONE (04:20)
[2022-08-29] MEDS ORDERED: ACETAMINOPHEN INJECTION 100 ML IVPB ONE (04:20)
[2022-08-29] MEDS ORDERED: FAMOTIDINE 10 MG/ML VIAL IVPB ONE ×2 (04:20→04:21)
[2022-08-29 05:00] LABS: BASO % 0.7 % (0-2.0); EOS % 1.3 % (0-4.5); HEMATOCRIT 30.9 % (32.4-45.2); HEMOGLOBIN 10.7 GM/dL (10.7-15.3); LYMPH % 30.6 % (8-40); MCH 29.6 pg (25.7-33.7); MCHC 34.5 g/dl (32.0-36.0); MEAN CELL VOLUME 85.8 fl (80-96); MEAN PLT VOLUME 7.9 fl (7.5-11.1); MONO % 6.9 % (3.8-10.2); NEUT % 60.5 % (42.8-82.8); PLATELET COUNT 324 10^3/uL (134-434); RBC 3.61 M/mm3 (3.60-5.2); RDW 14.9 % (11.6-15.6); WHITE BLOOD COUNT 10.5 K/mm3 (4.0-10.0)
[2022-08-29 05:20] LABS: ALBUMIN 3.1 g/dl (3.4-5.0)
[2022-08-29 05:21] LABS: BLOOD UREA NITROGEN 16.5 mg/dL (7-18)
[2022-08-29 05:23] LABS: CREATININE 0.7 mg/dL (0.55-1.3)
[2022-08-29 05:25] LABS: BILIRUBIN,TOTAL 0.2 mg/dL (0.2-1); TOT PROT 7.7 g/dl (6.4-8.2)
[2022-08-29 07:04] LABS: EPI CELLS 21 /uL (0-25.1); HYALINE CASTS 0 /uL (0-3.1); URINE APPEARANCE CLEAR; URINE BACTERIA 357 /uL (0-1359); URINE BILIRUBIN NEGATIVE (NEGATIVE); URINE COLOR ORANGE; URINE GLUCOSE (UA) TRACE (NEGATIVE); URINE KETONE NEGATIVE (NEGATIVE); URINE LEUK ESTERASE 1+ (NEGATIVE); URINE NITRITE NEGATIVE (NEGATIVE); URINE PROTEIN TRACE (NEGATIVE); URINE RBC 3332 /uL (0-23.9); URINE UROBILINOGEN 0.2 mg/dL (0.2-1.0); URINE WBC 55 /uL (0-25.8)
[2022-08-29] MEDS ORDERED: PIPERACILLIN/TAZOB 4.5 GM 4.5 GM in DEXTROSE 5%-WATER 100 ML IVPB ONE (09:45)
[2022-08-29] MEDS ORDERED: PIPERACILLIN/TAZOB 4.5 GM 4.5 GM/100 ML BAG IVPB ONE (10:09)
[2022-08-29] MEDS: LACTATED RINGERS SOLUTION 1,000 ML/1,000 ML INFUS.BAG IV SCH (10:30)
[2022-08-29] MEDS ORDERED: ALBUTEROL SO4 HFA INHALER IH PRN (12:29)
[2022-08-29] MEDS: PIPERACILLIN/TAZOB 3.375 GM 3.375 GM in DEXTROSE 5%-WATER - 50 ML IVPB SCH ×2 (14:05→21:06)
[2022-08-29] MEDS: INSULIN SLIDING SCALE (NOVOLOG) 1 VIAL SQ SCH (17:06)
[2022-08-29] MEDS ORDERED: VENLAFAXINE HCL 150 MG E.R. CAPSULE PO SCH (22:00)
[2022-08-30] MEDS: busPIRone HCL 10 MG TABLET (FP) PO SCH ×3 (00:48→21:38)
[2022-08-30] MEDS: QUEtiapine FUMARATE 200 MG TABLET GT SCH ×2 (00:49→21:38)
[2022-08-30] MEDS: INSULIN SLIDING SCALE (NOVOLOG) 1 VIAL SQ SCH ×5 (00:49→21:40)
[2022-08-30] MEDS: BUDESONIDE/FORMETEROL FUMARATE 160/4.5 mcg INHALER IH SCH ×3 (00:49→21:40)
[2022-08-30] MEDS: PIPERACILLIN/TAZOB 3.375 GM 3.375 GM in DEXTROSE 5%-WATER - 50 ML IVPB SCH ×4 (04:10→22:00)
[2022-08-30] MEDS: LACTATED RINGERS SOLUTION 1,000 ML/1,000 ML INFUS.BAG IV SCH ×2 (04:12→11:31)
[2022-08-30] MEDS ORDERED: ACETAMINOPHEN 1000 MG/100 ML BAG IVPB ONE (05:33)
[2022-08-30] MEDS: LEVOTHYROXINE NA 112 MCG TABLET (FP) PO SCH (06:23)
[2022-08-30] MEDS ORDERED: FLU VACC QS2022-23(6MOS UP)/PF 60 MCG/0.5 ML SYRINGE IM ONE (07:44)
[2022-08-30 07:50] VITALS: BMI 47.8
[2022-08-30 09:42] LABS: BASO % 0.7 % (0-2.0); EOS % 2.7 % (0-4.5); HEMATOCRIT 28.5 % (32.4-45.2); HEMOGLOBIN 9.7 GM/dL (10.7-15.3); LYMPH % 38.4 % (8-40); MCH 29.5 pg (25.7-33.7); MCHC 34.1 g/dl (32.0-36.0); MEAN CELL VOLUME 86.3 fl (80-96); MEAN PLT VOLUME 7.7 fl (7.5-11.1); MONO % 8.1 % (3.8-10.2); NEUT % 50.1 % (42.8-82.8); PLATELET COUNT 261 10^3/uL (134-434); RBC 3.31 M/mm3 (3.60-5.2); RDW 14.9 % (11.6-15.6); WHITE BLOOD COUNT 7.5 K/mm3 (4.0-10.0)
[2022-08-30] MEDS: LISINOPRIL 10 MG TABLET GT SCH (09:44)
[2022-08-30] MEDS: ENOXAPARIN NA (PORCINE) 40 MG/0.4 ML DISP.SYRIN SQ SCH (09:45)
[2022-08-30] MEDS ORDERED: LEVOTHYROXINE SODIUM 88 MCG PO SCH (10:00)
[2022-08-30 10:09] LABS: ALBUMIN 2.9 g/dl (3.4-5.0)
[2022-08-30 10:10] LABS: CALCIUM 8.6 mg/dL (8.5-10.1)
[2022-08-30 10:11] LABS: BLOOD UREA NITROGEN 12.4 mg/dL (7-18); MAGNESIUM 1.9 mg/dL (1.8-2.4); PHOSPHOROUS 4.5 mg/dL (2.5-4.9)
[2022-08-30 10:12] LABS: CREATININE 0.7 mg/dL (0.55-1.3)
[2022-08-30 10:13] LABS: BILIRUBIN,TOTAL 0.4 mg/dL (0.2-1)
[2022-08-30] MEDS: D5-1/2NS+20 MEQ KCL - 20 MEQ/1,000 ML INFUS.BAG IV SCH (12:48)
[2022-08-30] MEDS ORDERED: ACETAMINOPHEN 1000 MG/100 ML BAG IVPB PRN (21:04)
[2022-08-30] MEDS: VENLAFAXINE HCL 75 MG E.R. CAPSULES PO SCH (21:37)
[2022-08-31] MEDS: PIPERACILLIN/TAZOB 3.375 GM 3.375 GM in DEXTROSE 5%-WATER - 50 ML IVPB SCH ×4 (04:00→22:24)
[2022-08-31] MEDS: LEVOTHYROXINE NA 112 MCG TABLET (FP) PO SCH (06:56)
[2022-08-31] MEDS: INSULIN SLIDING SCALE (NOVOLOG) 1 VIAL SQ SCH ×4 (06:58→22:34)
[2022-08-31] MEDS: LISINOPRIL 10 MG TABLET GT SCH (09:01)
[2022-08-31] MEDS: busPIRone HCL 10 MG TABLET (FP) PO SCH ×2 (09:01→22:24)
[2022-08-31] MEDS: ENOXAPARIN NA (PORCINE) 40 MG/0.4 ML DISP.SYRIN SQ SCH (09:01)
[2022-08-31] MEDS: BUDESONIDE/FORMETEROL FUMARATE 160/4.5 mcg INHALER IH SCH ×2 (09:01→22:38)
[2022-08-31 12:22] LABS: BASO % 0.7 % (0-2.0); EOS % 2.4 % (0-4.5); HEMATOCRIT 30.8 % (32.4-45.2); HEMOGLOBIN 10.2 GM/dL (10.7-15.3); LYMPH % 37.4 % (8-40); MCH 28.7 pg (25.7-33.7); MCHC 33.3 g/dl (32.0-36.0); MEAN CELL VOLUME 86.3 fl (80-96); MEAN PLT VOLUME 8.1 fl (7.5-11.1); MONO % 7.1 % (3.8-10.2); NEUT % 52.4 % (42.8-82.8); PLATELET COUNT 311 10^3/uL (134-434); RBC 3.57 M/mm3 (3.60-5.2); WHITE BLOOD COUNT 7.9 K/mm3 (4.0-10.0)
[2022-08-31 12:53] LABS: CALCIUM 8.9 mg/dL (8.5-10.1)
[2022-08-31 12:57] LABS: CREATININE 0.7 mg/dL (0.55-1.3)
[2022-08-31 12:58] LABS: BILIRUBIN,TOTAL 0.5 mg/dL (0.2-1)
[2022-08-31] MEDS: D5-1/2NS+20 MEQ KCL - 20 MEQ/1,000 ML INFUS.BAG IV SCH (16:01)
[2022-08-31] MEDS: LACTATED RINGERS SOLUTION 1,000 ML/1,000 ML INFUS.BAG IV SCH (17:08)
[2022-08-31] MEDS: QUEtiapine FUMARATE 200 MG TABLET GT SCH (22:25)
[2022-08-31] MEDS: VENLAFAXINE HCL 75 MG E.R. CAPSULES PO SCH (22:25)
[2022-09-01] MEDS: PIPERACILLIN/TAZOB 3.375 GM 3.375 GM in DEXTROSE 5%-WATER - 50 ML IVPB SCH ×4 (02:36→21:16)
[2022-09-01] MEDS: LEVOTHYROXINE NA 112 MCG TABLET (FP) PO SCH (06:16)
[2022-09-01] MEDS: INSULIN SLIDING SCALE (NOVOLOG) 1 VIAL SQ SCH ×4 (06:16→21:59)
[2022-09-01] MEDS: LACTATED RINGERS SOLUTION 1,000 ML/1,000 ML INFUS.BAG IV SCH ×2 (07:52→10:33)
[2022-09-01 10:01] LABS: BASO % 0.7 % (0-2.0); EOS % 2.1 % (0-4.5); HEMOGLOBIN 10.6 GM/dL (10.7-15.3); LYMPH % 35.6 % (8-40); MCH 28.8 pg (25.7-33.7); MCHC 33.3 g/dl (32.0-36.0); MEAN CELL VOLUME 86.5 fl (80-96); MEAN PLT VOLUME 7.9 fl (7.5-11.1); MONO % 8.5 % (3.8-10.2); NEUT % 53.1 % (42.8-82.8); PLATELET COUNT 332 10^3/uL (134-434); RBC 3.69 M/mm3 (3.60-5.2); WHITE BLOOD COUNT 8.9 K/mm3 (4.0-10.0)
[2022-09-01 10:22] LABS: BLOOD UREA NITROGEN 7.6 mg/dL (7-18); CALCIUM 8.6 mg/dL (8.5-10.1)
[2022-09-01 10:23] LABS: ALBUMIN 3.1 g/dl (3.4-5.0)
[2022-09-01 10:26] LABS: CREATININE 0.8 mg/dL (0.55-1.3)
[2022-09-01 10:27] LABS: BILIRUBIN,TOTAL 0.5 mg/dL (0.2-1); TOT PROT 7.4 g/dl (6.4-8.2)
[2022-09-01] MEDS: LISINOPRIL 10 MG TABLET GT SCH (11:22)
[2022-09-01] MEDS: busPIRone HCL 10 MG TABLET (FP) PO SCH ×2 (11:22→21:17)
[2022-09-01] MEDS: ENOXAPARIN NA (PORCINE) 40 MG/0.4 ML DISP.SYRIN SQ SCH (11:22)
[2022-09-01] MEDS: BUDESONIDE/FORMETEROL FUMARATE 160/4.5 mcg INHALER IH SCH ×2 (11:27→21:55)
[2022-09-01] MEDS ORDERED: LACTATED RINGERS SOLUTION 1,000 ML/1,000 ML INFUS.BAG IV SCH (20:26)
[2022-09-01] MEDS: VENLAFAXINE HCL 75 MG E.R. CAPSULES PO SCH (21:17)
[2022-09-01] MEDS: QUEtiapine FUMARATE 200 MG TABLET GT SCH (21:17)
[2022-09-02] MEDS: PIPERACILLIN/TAZOB 3.375 GM 3.375 GM in DEXTROSE 5%-WATER - 50 ML IVPB SCH ×4 (02:12→22:38)
[2022-09-02] MEDS: LEVOTHYROXINE NA 112 MCG TABLET (FP) PO SCH (06:06)
[2022-09-02] MEDS: INSULIN SLIDING SCALE (NOVOLOG) 1 VIAL SQ SCH ×4 (06:07→22:37)
[2022-09-02 09:45] LABS: HEMATOCRIT 29.6 % (32.4-45.2); HEMOGLOBIN 10.5 GM/dL (10.7-15.3); MCH 30.6 pg (25.7-33.7); MCHC 35.5 g/dl (32.0-36.0); MEAN CELL VOLUME 86.1 fl (80-96); MEAN PLT VOLUME 7.6 fl (7.5-11.1); PLATELET COUNT 303 10^3/uL (134-434); RBC 3.43 M/mm3 (3.60-5.2); RDW 14.8 % (11.6-15.6); WHITE BLOOD COUNT 7.6 K/mm3 (4.0-10.0)
[2022-09-02] MEDS: LISINOPRIL 10 MG TABLET GT SCH (10:02)
[2022-09-02] MEDS: busPIRone HCL 10 MG TABLET (FP) PO SCH ×2 (10:02→22:35)
[2022-09-02] MEDS: BUDESONIDE/FORMETEROL FUMARATE 160/4.5 mcg INHALER IH SCH ×2 (10:03→22:38)
[2022-09-02 10:09] LABS: CALCIUM 8.8 mg/dL (8.5-10.1)
[2022-09-02 10:10] LABS: BLOOD UREA NITROGEN 6.3 mg/dL (7-18)
[2022-09-02 10:13] LABS: CREATININE 0.7 mg/dL (0.55-1.3)
[2022-09-02 10:18] LABS: N-TERMINAL BNP 156.3 pg/ml (5-125)
[2022-09-02] MEDS ORDERED: LIDOCAINE HCL/PF 2% SDV 5ML VIAL ONE ×2 (12:04→12:10)
[2022-09-02] MEDS ORDERED: PROPOFOL 40 ML ONE (12:04)
[2022-09-02] MEDS ORDERED: MIDAZOLAM HCL 2 MG/2 ML SINGLE DOSE VIAL ONE (12:04)
[2022-09-02] MEDS ORDERED: BUPIVACAINE HCL/PF 0.5% (5MG/ML) 10 ML VIAL ONE (12:06)
[2022-09-02] MEDS ORDERED: ROCURONIUM BROMIDE 50 MG/5 ML SYRINGE ONE (12:14)
[2022-09-02] MEDS ORDERED: SUGAMMADEX SODIUM 200 MG/2 ML VIAL ONE (12:44)
[2022-09-02] MEDS ORDERED: ceFAZolin SODIUM 1 GM VIAL ONE (12:52)
[2022-09-02] MEDS ORDERED: DEXAMETHASONE SOD PHOSPHATE 4 MG/1 ML VIAL ONE (12:52)
[2022-09-02] MEDS ORDERED: ceFAZolin SODIUM 1 GM VIAL IVPB ONE (12:58)
[2022-09-02] MEDS ORDERED: BUPIVACAINE HCL/PF 0.5% (5MG/ML) 10 ML VIAL NR ONE (13:34)
[2022-09-02] MEDS ORDERED: NEOSTIGMINE METHYLSULFATE 0.5 MG/1 ML - 10 ML MDV ONE (13:34)
[2022-09-02] MEDS ORDERED: ONDANSETRON 4 MG/2 ML VIAL IVPUSH PRN ×2 (14:11→14:22)
[2022-09-02] MEDS ORDERED: LACTATED RINGERS SOLUTION 1,000 ML IV SCH ×2 (14:15→14:22)
[2022-09-02] MEDS ORDERED: ALBUTEROL SO4 HFA INHALER IH PRN (14:22)
[2022-09-02] MEDS ORDERED: FLU VACC QS2022-23(6MOS UP)/PF 60 MCG/0.5 ML SYRINGE IM ONE (14:22)
[2022-09-02] MEDS: LACTATED RINGERS SOLUTION 1,000 ML/1,000 ML INFUS.BAG IV SCH (15:30)
[2022-09-02] MEDS ORDERED: PIPERACILLIN/TAZOB 3.375 GM 3.375 GM in DEXTROSE 5%-WATER - 50 ML IVPB SCH (21:00)
[2022-09-02] MEDS: VENLAFAXINE HCL 75 MG E.R. CAPSULES PO SCH (22:36)
[2022-09-02] MEDS: QUEtiapine FUMARATE 200 MG TABLET PO SCH (22:37)
[2022-09-03] MEDS: PIPERACILLIN/TAZOB 3.375 GM 3.375 GM in DEXTROSE 5%-WATER - 50 ML IVPB SCH ×3 (03:39→14:13)
[2022-09-03] MEDS: LEVOTHYROXINE NA 112 MCG TABLET (FP) PO SCH (06:00)
[2022-09-03] MEDS: INSULIN SLIDING SCALE (NOVOLOG) 1 VIAL SQ SCH ×4 (06:00→22:11)
[2022-09-03 06:46] VITALS: RESP 20
[2022-09-03] MEDS: busPIRone HCL 10 MG TABLET (FP) PO SCH ×2 (09:44→22:10)
[2022-09-03] MEDS: BUDESONIDE/FORMETEROL FUMARATE 160/4.5 mcg INHALER IH SCH ×2 (09:46→22:14)
[2022-09-03] MEDS: LISINOPRIL 10 MG TABLET PO SCH (10:06)
[2022-09-03] MEDS ORDERED: INSULIN SLIDING SCALE (NOVOLOG) 1 VIAL SQ ONE (11:10)
[2022-09-03] MEDS: LACTATED RINGERS SOLUTION 1,000 ML/1,000 ML INFUS.BAG IV SCH (15:18)
[2022-09-03] MEDS: QUEtiapine FUMARATE 200 MG TABLET PO SCH (22:10)
[2022-09-03] MEDS: VENLAFAXINE HCL 75 MG E.R. CAPSULES PO SCH (22:10)
[2022-09-04] MEDS: LEVOTHYROXINE NA 112 MCG TABLET (FP) PO SCH (06:00)
[2022-09-04] MEDS: INSULIN SLIDING SCALE (NOVOLOG) 1 VIAL SQ SCH ×2 (06:00→11:45)
[2022-09-04] MEDS: LISINOPRIL 10 MG TABLET PO SCH (10:30)
[2022-09-04] MEDS: busPIRone HCL 10 MG TABLET (FP) PO SCH (10:30)
[2022-09-04] MEDS: BUDESONIDE/FORMETEROL FUMARATE 160/4.5 mcg INHALER IH SCH (11:57)
[2022-09-04 12:29] VITALS: BP 135/68; PULSE 81; TEMP 98.5
== END 2022-09-04 15:51 | disposition home or self-care (01) | DRG 263 ==
LOC: JER 03:06 → JERBED 10:30 → J5S 08-30 00:36
PROVIDERS: ADMIT Internal Medicine; ATTEND Internal Medicine
PROC: 0FT44ZZ Resection of Gallbladder, Percutaneous Endoscopic Approach (ICD-10-PCS; principal; 2022-09-02 12:00)
DX: K81.0 Acute cholecystitis (principal); J96.10 Chronic respiratory failure, unspecified whether with hypoxia or hypercapnia; Z93.0 Tracheostomy status; Z68.42 Body mass index [BMI] 45.0-49.9, adult; E03.9 Hypothyroidism, unspecified; E11.9 Type 2 diabetes mellitus without complications; E66.9 Obesity, unspecified; E78.5 Hyperlipidemia, unspecified; I10 Essential (primary) hypertension; K21.9 Gastro-esophageal reflux disease without esophagitis
CPT/HCPCS: 0241U-QW; 36415; 71045-TC-FY; 74177-TC; 76705-TC; 78226-TC; 80048; 80053; 81003; 82550; 82962; 83690; 83735; 83880; 84100; 84443; 84484; 85025; 85027; 87086; 88304-TC; 93005; 93010; 94760; 99285-25; A9537; Q9967

== ENCOUNTER 2023-05-03 21:45 | Inpatient (IN) | payer OTHER ==
[2023-05-03] MEDS ORDERED: ALBUTEROL SO4 2.5/IPRATROPIUM 0.5 INH SOL 3 ML VIAL.NEB. NEB ONE (23:05)
[2023-05-03 23:29] LABS: BASO % 0.9 % (0-2.0); EOS % 1.5 % (0-4.5); HEMATOCRIT 35.5 % (32.4-45.2); HEMOGLOBIN 12.1 GM/dL (10.7-15.3); MEAN CELL VOLUME 85.4 fl (80-96); MEAN PLT VOLUME 8.4 fl (7.5-11.1); NEUT % 42.6 % (42.8-82.8); PLATELET COUNT 288 10^3/uL (134-434); RBC 4.16 M/mm3 (3.60-5.2); RDW 14.6 % (11.6-15.6); WHITE BLOOD COUNT 7.6 K/mm3 (4.0-10.0)
[2023-05-03 23:54] LABS: CHLORIDE 96 mmol/L (98-107); POTASSIUM 3.6 mmol/L (3.5-5.1); SODIUM 132 mmol/L (136-145)
[2023-05-03] MEDS ORDERED: SODIUM CHLORIDE 0.9% 500 ML INFUS.BAG IV ONE (23:55)
[2023-05-03 23:56] LABS: ALBUMIN 3.2 g/dl (3.4-5.0); CALCIUM 8.8 mg/dL (8.5-10.1); LIPASE 124 U/L (73-393)
[2023-05-03 23:57] LABS: ANION GAP 9 mmol/L (4-13); CO2 28 mmol/L (21-32)
[2023-05-04] LABS: SGOT/AST 17 U/L (15-37); SGPT/ALT 25 U/L (13-61)
[2023-05-04 00:01] LABS: BILIRUBIN,TOTAL 0.3 mg/dL (0.2-1); TOT PROT 7.2 g/dl (6.4-8.2)
[2023-05-04 00:03] LABS: ALK PHOS 248 U/L (45-117); GLUCOSE,RANDOM 490 mg/dL (74-106)
[2023-05-04] MEDS ORDERED: SODIUM CHLORIDE 0.9% 500 ML INFUS.BAG IV ONE (00:16)
[2023-05-04] MEDS ORDERED: POTASSIUM CHLORIDE TABS 20 MEQ TABLET.ER (FP) PO ONE (00:17)
[2023-05-04] MEDS ORDERED: INSULIN REGULAR HUMAN 100 UNITS/ML *VIAL SQ ONE (00:18)
[2023-05-04] MEDS ORDERED: MAGNESIUM SULF 50% (8.12 MEQ/2 ML-1 GM VIAL) IVPB ONE (00:19)
[2023-05-04] MEDS ORDERED: MAGNESIUM SULFATE IN WATER 2 GM/50 ML IVPB IVPB ONE (00:45)
[2023-05-04] MEDS ORDERED: POTASSIUM CHLORIDE ORAL LIQUID 20 MEQ/15 ML ONE (00:45)
[2023-05-04] MEDS ORDERED: INSULIN REGULAR HUMAN 100 UNITS/ML *VIAL ONE (00:47)
[2023-05-04] MEDS ORDERED: ONDANSETRON 4 MG/2 ML VIAL IVPUSH ONE (01:08)
[2023-05-04] MEDS ORDERED: ACETAMINOPHEN 1000 MG/100 ML BAG IVPB ONE (01:26)
[2023-05-04] MEDS ORDERED: ONDANSETRON 4 MG/2 ML VIAL ONE (01:28)
[2023-05-04] MEDS ORDERED: ACETAMINOPHEN INJECTION 100 ML IVPB ONE (01:28)
[2023-05-04] MEDS ORDERED: MAG HYDROX/AL HYDROX/SIMETH 30 ML UNIT-DOSE CUP PO ONE (01:40)
[2023-05-04] MEDS ORDERED: diazePAM 5 MG TABLET PO ONE (01:40)
[2023-05-04] MEDS ORDERED: diazePAM 5 MG TABLET ONE (02:59)
[2023-05-04 06:25] LABS: HEMATOCRIT 37.8 % (32.4-45.2); HEMOGLOBIN 12.4 GM/dL (10.7-15.3); MCH 28.4 pg (25.7-33.7); MCHC 32.8 g/dl (32.0-36.0); MEAN CELL VOLUME 86.6 fl (80-96); MEAN PLT VOLUME 8.5 fl (7.5-11.1); PLATELET COUNT 308 10^3/uL (134-434); RBC 4.36 M/mm3 (3.60-5.2); RDW 14.2 % (11.6-15.6); WHITE BLOOD COUNT 8.1 K/mm3 (4.0-10.0)
[2023-05-04] MEDS ORDERED: MAG HYDROX/AL HYDROX/SIMETH 30 ML UNIT-DOSE CUP ONE (06:29)
[2023-05-04] MEDS ORDERED: MAG HYDROX/AL HYDROX/SIMETH -MYLANTA- ORAL SUSPENSION PO ONE (06:32)
[2023-05-04 06:48] LABS: POTASSIUM 4.7 mmol/L (3.5-5.1)
[2023-05-04 06:51] LABS: CALCIUM 8.5 mg/dL (8.5-10.1)
[2023-05-04 06:52] LABS: ALBUMIN 3.4 g/dl (3.4-5.0); BLOOD UREA NITROGEN 14.6 mg/dL (7-18); MAGNESIUM 2.3 mg/dL (1.8-2.4)
[2023-05-04 06:55] LABS: CREATININE 0.8 mg/dL (0.55-1.3); PHOSPHOROUS 3.3 mg/dL (2.5-4.9)
[2023-05-04 06:56] LABS: BILIRUBIN,TOTAL 0.4 mg/dL (0.2-1)
[2023-05-04 06:57] LABS: TOT PROT 7.4 g/dl (6.4-8.2)
[2023-05-04] MEDS ORDERED: INSULIN (NOVOLOG) ASPART 100 UNITS/ML 10ML VIAL ONE ×4 (07:56→17:12)
[2023-05-04] MEDS: INSULIN (NOVOLOG) ASPART 100 UNITS/ML 10ML VIAL SQ SCH ×3 (08:02→17:02)
[2023-05-04 09:54] VITALS: BMI 44.9
[2023-05-04] MEDS: ENOXAPARIN NA (PORCINE) 40 MG/0.4 ML DISP.SYRIN SQ SCH ×2 (10:50→22:13)
[2023-05-04] MEDS ORDERED: ALBUTEROL SO4 2.5/IPRATROPIUM 0.5 INH SOL 3 ML VIAL.NEB. NEB SCH (14:00)
[2023-05-04] MEDS: LISINOPRIL 10 MG TABLET PO SCH (14:37)
[2023-05-04] MEDS: BUDESONIDE/FORMETEROL FUMARATE 160/4.5 mcg INHALER IH SCH ×2 (15:51→22:24)
[2023-05-04] MEDS: FLUTICASONE PROP 0.05% 16 GM NASAL SPRAY NS SCH (15:52)
[2023-05-04] MEDS: PANTOPRAZOLE 40 MG TABLET PO SCH (16:14)
[2023-05-04] MEDS: ALBUTEROL SO4 2.5/IPRATROPIUM 0.5 INH SOL 3 ML VIAL.NEB. NEB SCH (19:43)
[2023-05-04] MEDS ORDERED: ATORVASTATIN CA 10 MG TABLET (FP) PO SCH (22:00)
[2023-05-04] MEDS ORDERED: INSULIN (LEVEMIR) 100 UNITS/ML UNITS SQ SCH (22:00)
[2023-05-04 22:41] VITALS: RESP 18
[2023-05-05 04:18] LABS: EPI CELLS 6 /uL (0-25.1); HYALINE CASTS 0 /uL (0-3.1); URINE APPEARANCE CLEAR; URINE BACTERIA 834 /uL (0-1359); URINE BILIRUBIN NEGATIVE (NEGATIVE); URINE COLOR YELLOW; URINE GLUCOSE (UA) 3+ (NEGATIVE); URINE KETONE NEGATIVE (NEGATIVE); URINE LEUK ESTERASE NEGATIVE (NEGATIVE); URINE NITRITE NEGATIVE (NEGATIVE); URINE PROTEIN NEGATIVE (NEGATIVE); URINE RBC 6 /uL (0-23.9); URINE UROBILINOGEN 0.2 mg/dL (0.2-1.0); URINE WBC 21 /uL (0-25.8)
[2023-05-05] MEDS: INSULIN (NOVOLOG) ASPART 100 UNITS/ML 10ML VIAL SQ SCH ×3 (06:52→17:14)
[2023-05-05] MEDS ORDERED: LEVOTHYROXINE NA 112 MCG TABLET (FP) PO SCH (07:00)
[2023-05-05] MEDS ORDERED: INSULIN (LEVEMIR) 100 UNITS/ML UNITS SQ SCH (07:00)
[2023-05-05] MEDS: ALBUTEROL SO4 2.5/IPRATROPIUM 0.5 INH SOL 3 ML VIAL.NEB. NEB SCH ×2 (07:35→14:35)
[2023-05-05 09:39] LABS: BASO % 1.2 % (0-2.0); EOS % 3.2 % (0-4.5); HEMATOCRIT 35.5 % (32.4-45.2); HEMOGLOBIN 11.5 GM/dL (10.7-15.3); LYMPH % 50.4 % (8-40); MCH 28.2 pg (25.7-33.7); MCHC 32.4 g/dl (32.0-36.0); MEAN CELL VOLUME 87.1 fl (80-96); MEAN PLT VOLUME 8.4 fl (7.5-11.1); MONO % 8.8 % (3.8-10.2); NEUT % 36.4 % (42.8-82.8); PLATELET COUNT 292 10^3/uL (134-434); RBC 4.07 M/mm3 (3.60-5.2); RDW 14.2 % (11.6-15.6); WHITE BLOOD COUNT 6.2 K/mm3 (4.0-10.0)
[2023-05-05] MEDS: ENOXAPARIN NA (PORCINE) 40 MG/0.4 ML DISP.SYRIN SQ SCH (09:49)
[2023-05-05] MEDS: LISINOPRIL 10 MG TABLET PO SCH (09:49)
[2023-05-05] MEDS: PANTOPRAZOLE 40 MG TABLET PO SCH (09:49)
[2023-05-05] MEDS: BUDESONIDE/FORMETEROL FUMARATE 160/4.5 mcg INHALER IH SCH (09:50)
[2023-05-05] MEDS: FLUTICASONE PROP 0.05% 16 GM NASAL SPRAY NS SCH (09:50)
[2023-05-05 10:04] LABS: POTASSIUM 4.2 mmol/L (3.5-5.1)
[2023-05-05 10:11] LABS: BLOOD UREA NITROGEN 12.3 mg/dL (7-18); CALCIUM 8.2 mg/dL (8.5-10.1); MAGNESIUM 2.2 mg/dL (1.8-2.4)
[2023-05-05 10:14] LABS: PHOSPHOROUS 3.1 mg/dL (2.5-4.9)
[2023-05-05 10:16] LABS: TOT PROT 6.6 g/dl (6.4-8.2)
[2023-05-05 15:08] VITALS: BP 125/55; TEMP 98.6
[2023-05-05 15:40] VITALS: PULSE 72
== END 2023-05-05 18:52 | disposition home or self-care (01) | DRG 420 ==
LOC: JER 21:45 → JERBED 05-04 02:36 → OBSVTOIN 05-04 02:36 → J8W 05-04 08:41
PROVIDERS: ADMIT Internal Medicine; ATTEND Nurse Practitioner Family
DX: E11.65 Type 2 diabetes mellitus with hyperglycemia (principal); J84.9 Interstitial pulmonary disease, unspecified; J96.11 Chronic respiratory failure with hypoxia; Z93.0 Tracheostomy status; E66.01 Morbid (severe) obesity due to excess calories; Z68.41 Body mass index [BMI] 40.0-44.9, adult; E03.9 Hypothyroidism, unspecified; E78.5 Hyperlipidemia, unspecified; K21.9 Gastro-esophageal reflux disease without esophagitis; L40.9 Psoriasis, unspecified; R07.9 Chest pain, unspecified; J98.11 Atelectasis
CPT/HCPCS: 0241U-QW; 36415; 71045-TC-FY; 80053; 80061; 81003; 82962; 83036; 83690; 83735; 84100; 84443; 84484; 85025; 85027; 93005; 93010; 94640; 99285-25

== ENCOUNTER 2024-09-20 17:45 | Emergency (ER) | payer OTHER ==
[2024-09-20 17:54] VITALS: BP 152/53; PULSE 95; RESP 22; TEMP 98.4; BMI 44.9
[2024-09-20 20:45] LABS: BASO % 0.8 % (0-2.0); EOS % 1.9 % (0-4.5); HEMATOCRIT 38.6 % (32.4-45.2); LYMPH % 40.4 % (8-40); MCH 28.8 pg (25.7-33.7); MCHC 33.7 g/dl (32.0-36.0); MEAN CELL VOLUME 85.4 fl (80-96); MEAN PLT VOLUME 9.1 fl (7.5-11.1); MONO % 6.6 % (3.8-10.2); NEUT % 50.3 % (42.8-82.8); PLATELET COUNT 258 10^3/uL (134-434); RBC 4.52 M/mm3 (3.60-5.2); RDW 13.7 % (11.6-15.6); WHITE BLOOD COUNT 9.4 K/mm3 (4.0-10.0)
[2024-09-20 20:49] LABS: ACTIVATED PTT 28.6 SECONDS (25.2-36.5)
[2024-09-20 20:50] LABS: VENOUS BASE EXCESS 2.5 mmol/L (-2-2); VENOUS O2 SATURATION 46.8 % (70-80); VENOUS PCO2 57.4 mmHg (38-52); VENOUS PH 7.333 (7.310-7.410)
[2024-09-20 20:54] LABS: CHLORIDE 94 mmol/L (98-107); POTASSIUM 4.7 mmol/L (3.5-5.1); SODIUM 131 mmol/L (136-145)
[2024-09-20 20:58] LABS: ALBUMIN 3.4 g/dl (3.4-5.0); ANION GAP 7 mmol/L (4-13); CALCIUM 8.7 mg/dL (8.5-10.1); CO2 30 mmol/L (21-32)
[2024-09-20 20:59] LABS: BLOOD UREA NITROGEN 19.8 mg/dL (7-18)
[2024-09-20 21:01] LABS: CREATININE 0.8 mg/dL (0.55-1.3); SGOT/AST 39 U/L (15-37); SGPT/ALT 29 U/L (13-61)
[2024-09-20 21:03] LABS: BILIRUBIN,TOTAL 0.4 mg/dL (0.2-1); TOT PROT 7.5 g/dl (6.4-8.2)
[2024-09-20 21:04] LABS: ALK PHOS 302 U/L (45-117)
[2024-09-20 21:06] LABS: GLUCOSE,RANDOM 401 mg/dL (74-106)
[2024-09-20 21:18] LABS: LACTIC ACID 2.5 mmol/L (0.4-2.0)
[2024-09-20] MEDS: SODIUM CHLORIDE 1,000 ML IV STA (21:38)
[2024-09-20] MEDS ORDERED: INSULIN REGULAR HUMAN 100 UNITS/ML *VIAL ONE (21:46)
[2024-09-20] MEDS: INSULIN REGULAR HUMAN 100 UNITS/ML *VIAL IVPUSH ONE (21:55)
== END 2024-09-21 00:22 | disposition home or self-care (01) ==
LOC: JER 17:45
PROC: 3E033VG Introduction of Insulin into Peripheral Vein, Percutaneous Approach (ICD-10-PCS; principal; 2024-09-20)
PROC: 3E0337Z Introduction of Electrolytic and Water Balance Substance into Peripheral Vein, Percutaneous Approach (ICD-10-PCS; 2024-09-20)
DX: E11.65 Type 2 diabetes mellitus with hyperglycemia (principal)
CPT/HCPCS: 36415; 80053; 82010; 82803; 82962; 83036; 83605; 85025; 85610; 85730; 86850; 86900; 86901; 93005; 93010; 99285-25

== ENCOUNTER 2025-04-14 09:35 | Emergency (ER) | payer OTHER ==
[2025-04-14 09:46] VITALS: BP 124/64; PULSE 85; RESP 22; TEMP 98.7; BMI 46.8
[2025-04-14] MEDS ORDERED: KETOROLAC TROMETHAMINE 15 MG/ML VIAL ONE (11:47)
[2025-04-14] MEDS ORDERED: ACETAMINOPHEN 325 MG TABLET (FP) ONE (11:48)
[2025-04-14] MEDS: KETOROLAC TROMETHAMINE 15 MG/ML VIAL IM ONE (12:07)
[2025-04-14] MEDS: ACETAMINOPHEN 325 MG TABLET (FP) PO ONE (12:07)
== END 2025-04-14 12:11 | disposition home or self-care (01) ==
LOC: JERFT 09:35
PROC: 3E0233Z Introduction of Anti-inflammatory into Muscle, Percutaneous Approach (ICD-10-PCS; principal; 2025-04-14)
DX: M19.042 Primary osteoarthritis, left hand (principal)
CPT/HCPCS: 73110-TC-LT-FY; 73130-TC-LT-FY; 93005; 93010; 96372; 99284-25